=== PATIENT | male | born 1975 | race Caucasian/White ===

== ENCOUNTER 2024-04-21 10:28 | Outpatient (AMB) | payer OTHER, SELFPAY ==
--- NOTE | 2024-04-21 10:51 | A.OFFPC_ITS ---
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 agustina from [facility] Intake Note: New patient visit Director Of Solutions Architecture Required: No Allergies No Known Allergies Allergy (Verified 04/21/24 10:52) Tobacco use date assessed: 04/21/24 Dental Screening Dental Screen Date: 04/21/24 Did you have a dental visit in the last 12 months?: Yes Did you have a dental problem in the last 6 months where you did not have access to dental care?: No Was dental information given to patient?: Patient has dentist HPI HPI Comments History of Present Illness Details The patient is a 49 year old male with a past medical history of htn, depression, anxiety, ED, low testosterone presenting for follow up CV: On lisinopril 10mg daily. well controlled. denies chest pain, shortness of breath. Frustrated by weight gain. Would like to try GLP if covered. Has failed lifestlye changes. BH: On sertraline 50mg daily. stable. Tried wellbutrin in past but didnt like side effects. Endo/uro: on tadafanil 5mg daily, continues testosterone replacement therapy. Due for labs Colon cancer screening: ROS CONSTITUTIONAL: Denies weight loss, fever and chills. HEENT: Denies changes in vision and hearing. RESPIRATORY: Denies SOB and cough. CV: Denies palpitations and CP GI: Denies abdominal pain, nausea, vomiting and diarrhea. : Denies dysuria and urinary frequency. MSK: Denies new myalgia and joint pain. SKIN: Denies rash and pruritus. NEUROLOGICAL: Denies headache PSYCHIATRIC: Denies recent changes in mood. PHYSICAL EXAM: GENERAL: Alert and oriented x 3. NAD EYES: EOMI. Anicteric. HENT: Moist mucous membranes. No scleral icterus. No cervical lymphadenopathy. LUNGS: Clear to auscultation bilaterally. CARDIOVASCULAR: Regular rate and rhythm. No murmur. No JVD. ABDOMEN: Soft, non-tender +bs EXTREMITIES: No edema. Non-tender. SKIN: No rashes or lesions. Warm. NEUROLOGIC: No focal neurological deficits. CN II-XII grossly intact PSYCHIATRIC: Cooperative. Appropriate mood and affect [facility] Medical History (Updated 04/27/24 @ 10:03 by Suellen Porter MD) Kidney stone Family History (Updated 04/21/24 @ 11:00 by Cristin Hearn CMA) Mother Diabetes Heart disease Dementia Father HTN (hypertension) FH: kidney cancer Skin cancer Dementia Other FH: mental illness Social History (Updated 04/21/24 @ 10:52 by Cristin Hearn CMA) Housing: House Patient Tobacco Use Status: Former Tobacco user Cigarette Packs Per Day: 1 Years Smoked: 30 e-Cigarette/Vaping Use: Never Used Second Hand Smoke Exposure: No service: No Current occupational status: employed 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 1. Little interest or pleasure in doing things: not at all 2. Feeling down, depressed, or hopeless: not at all 3. Trouble falling or staying asleep, or sleeping too much: several days 4. Feeling tired or having little energy: not at all 5. Poor appetite or overeating: several days 6. Feeling bad about yourself - or that you are a failure or have let yourself or your family down: not at all 7. Trouble concentrating on things, such as reading the newspaper or watching t elevision: not at all 8. Moving or speaking so slowly that other people could have noticed. Or the opposite - being so fidgety or restless that you have been moving around a lot more than usual: not at all 9. Thoughts that you would be better off or of hurting yourself in some way: not at all Total score: 2 Depression Screening Interpretation: Negative (neg) Depression Screening Done: Yes 17312 - PHQ-9 Billing: Yes Source: Developed by Drs. Lul Graves, Yary Andrews, Thom Arevalo and colleagues, with an educational jayson from [employer]. Thrive Questionnaire Date Thrive assessed: 04/21/24 I am a: Patient What is your living situation today?: I have a steady place to live Within the past 12 months, did the food you bought not last and you didn't have the money to get more?: Never true Within the past 12 months, did you worry whether your food would run out before you got money to buy more?: Never true Do you have trouble paying for medicines?: No Do you have trouble getting transportation to medical appointments?: No Do you have trouble paying your heating and electricity bill?: No Do you have trouble taking care of your child, family member or friend?: No Do you have trouble with day-to-day activities such as bathing, preparing meals, shopping, managing finances, etc.?: No Are you currently unemployed and looking for a job?: No Are you interested in more education?: No Please select the resources that you would like help with: None Currently or been in a relationship where the following occur: No concerns reported THRIVE Score: 0 AUDIT C Alcohol Use Questionnaire (AUDIT-C) 1. How often do you have a drink containing alcohol?: Monthly or less 2. How many drinks containing alcohol do you have on a typical day when you are drinking?: 1 or 2 3. How often do you have six or more drinks on one occasion?: Never Total Score: 1 RAFAELA-7 AMB Questionnaire RAFAELA-7 Date RAFAELA - 7 assessed: 04/21/24 Feeling nervous, anxious, or on edge: 0 = Not at all Not being able to stop or control worryin = Not at all Worrying too much about different things: 1 = Several days Trouble relaxin = Several days Being so restless that it is hard to sit still: 1 = Several days Becoming easily annoyed or irritable: 1 = Several days Feeling afraid as if something awful might happen: 0 = Not at all Total RAFAELA-7 score (0-4 normal; 5-9 mild; 10-14 moderate; 15-21 severe): 4 Source: Developed by Drs. Lul Graves, Yary Andrews, Thom Arevalo and colleagues, with an educational jayson from [employer]. RAFAELA-7 Assessment Billing RAFAELA-7 Assessment Tool: RAFAELA-7 Assessment 16822 Physical exam (Primary Care) Vital Signs: Last Vital Signs Temp 98.2 F 04/21/24 11:02 Pulse 64 04/21/24 11:02 Resp 16 04/21/24 11:02 BP 126/86 04/21/24 11:02 Pulse Ox 96 04/21/24 11:02 Oxygen Delivery Method Room Air 04/21/24 11:02 BMI result Body Mass Index 33.2 Tobacco/Smoking Status: Tobacco use Status Tobacco use date assessed 04/21/24 04/21/24 11:05 Patient Tobacco Use Status Former Tobacco user 04/21/24 11:05 e-Cigarette/Vaping Use Never Used 04/21/24 11:05 PHQ-9: PHQ-9 Score PHQ-9: Total score 2 04/21/24 11:10 Depression Screening Interpretation: Negative (neg) Thrive Assessment: Date of Thrive Assessment Date Thrive assessed 04/21/24 04/21/24 11:05 Currently or been in a relationship where the following occur: No concerns reported Assessment and Plan Assessment & Plan (1) Hypertension: Code(s): I10 - Essential (primary) hypertension Qualifiers: Hypertension type: primary hypertension Qualified Code(s): I10 - Essential (primary) hypertension Plan: controlled on current medications Low salt diet Recommend weight loss -GLP sent. (2) Low testosterone: Code(s): R79.89 - Other specified abnormal findings of blood chemistry Plan: Labs ordered. continue current medications (3) Major depressive disorder, recurrent, in partial remission: Code(s): F33.41 - Major depressive disorder, recurrent, in partial remission Plan: stable on current medications Orders: Orders Lipid Panel 04/21/24 I10 - Essential (primary) hypertension, R79.89 - Other specified abnormal findings of blood chemistry, Z51.81 - Encounter for therapeutic drug level monitoring, Z79.890 - Hormone replacement therapy Comprehensive Met. Panel 04/21/24 I10 - Essential (primary) hypertension, R79.89 - Other specified abnormal findings of blood chemistry, Z51.81 - Encounter for therapeutic drug level monitoring, Z79.890 - Hormone replacement therapy Complete Blood Count Auto Diff 04/21/24 I10 - Essential (primary) hypertension, R79.89 - Other specified abnormal findings of blood chemistry, Z51.81 - Encounter for therapeutic drug level monitoring, Z79.890 - Hormone replacement therapy PSA,Total (Free>4and<10) 04/21/24 I10 - Essential (primary) hypertension, R79.89 - Other specified abnormal findings of blood chemistry, Z51.81 - Encounter for therapeutic drug level monitoring, Z79.890 - Hormone replacement therapy TSH reflex Free T4 04/21/24 I10 - Essential (primary) hypertension, R79.89 - Other specified abnormal findings of blood chemistry, Z51.81 - Encounter for therapeutic drug level monitoring, Z79.890 - Hormone replacement therapy Medications: New testosterone 8 pumps transdermal DAILY 300 grams 3RF semaglutide for 4 weeks 0.25 mg (0.368 mL) subcut QWEEK 4 weeks 1.472 mL 3RF lisinopril 10 mg PO DAILY 90 tabs 3RF sertraline 50 mg PO DAILY 90 days 90 tabs 3RF testosterone apply 1 pump amount over max area of ONE upper arm and shoulder 5 pumps topical DAILY 90 days 150 grams 3RF Refilled tadalafil (Cialis) one tablet oral daily and additional 10mg as needed one hour prior to sexual activity 5 mg PO DAILY 110 tabs 3RF Coding Level of Care Code Est Pt Level 4 (69953) Complex EM visit Add On G2211 Diagnoses Primary hypertension I10 Hypertension type: primary hypertension Low testosterone R79.89 Major depressive disorder, recurrent, in partial remission F33.41 Additional Codes RAFAELA-7 Assessment Billing - RAFAELA-7 Assessment Tool: RAFAELA-7 Assessment 66042 ([id number])
[2024-04-21 11:02] VITALS: BP 126/86; PULSE 64; RESP 16; TEMP 36.8; O2SAT 96; BMI 33.2
== END 2024-04-21 11:33 | disposition home or self-care (01) ==
PROVIDERS: Visit Provider Internal Medicine
DX: I10 Essential (primary) hypertension (principal); R79.89 Other specified abnormal findings of blood chemistry; F33.41 Major depressive disorder, recurrent, in partial remission
CPT/HCPCS: 99214

== ENCOUNTER 2024-04-21 11:47 | Outpatient (REF) | payer OTHER, SELFPAY ==
[2024-04-21 14:27] LABS: MANUAL DIFF FLAG NO
[2024-04-21 14:41] LABS: Basophils Percent Auto 0.4 % (0-2); Eosinophils Absolute Auto 0.1 X10*3/uL (0.0-0.4); Eosinophils Percent Auto 1.9 % (0-4); Hematocrit 46.4 % (42.0-52.0); Imm Gran Abs Auto 0.02 X10*3/uL (0.00-0.03); Imm Gran Pct Auto 0.3 % (0.0-0.4); Lymphocytes Absolute Auto 1.5 X10*3/uL (1.2-4.9); Mean Corpuscular HGB Conc 34.5 g/dl (31.0-36.0); Mean Corpuscular Hemoglobin 29.2 pg (27.0-33.0); Mean Corpuscular Volume 84.7 fL (80.0-98.0); Mean Platelet Volume 10.6 fL (9.4-12.4); Monocytes Absolute Auto 0.4 X10*3/uL (0.1-1.2); Monocytes Percent Auto 5.8 % (2-11); Neutrophils Absolute Auto 4.6 x10*3/uL (2.0-8.3); Neutrophils Percent Auto 69.6 % (45-73); Platelet Count 174 X10*3/uL (160-400); Red Blood Count 5.48 X10*6/uL (4.60-5.80); White Blood Count 6.7 X10*3/uL (4.8-10.8)
[2024-04-21 15:05] LABS: Alanine Aminotransferase 18 U/L (0-40); Albumin Level 4.5 g/dL (3.5-5.0); Alkaline Phosphatase 60 U/L (39-117); Anion Gap 12 (12-20); Aspartate Amino Transferase 26 U/L (5-37); Bilirubin Total 0.8 mg/dL (0.0-1.0); Blood Urea Nitrogen 16 mg/dL (9-16); Calcium 9.8 mg/dL (8.4-10.2); Carbon Dioxide 28 mmol/L (22-29); Chloride 105 mmol/L (96-108); Cholesterol 166 mg/dL (<200); Estimated Glomerular Filt Rate > 60; Glucose Random 86 mg/dL (60-115); HDL Cholesterol 37 mg/dL (>40); LDL Cholesterol Calculated 94 mg/dL (<100); Potassium 4.2 mmol/L (3.3-5.1); Sodium 141 mmol/L (135-145); Total Protein 7.1 g/dL (6.5-8.0); Triglycerides 177 mg/dL (<150)
[2024-04-21 15:10] LABS: TSH reflex Free T4 0.99 uIU/mL (0.32-4.0)
== END 2024-04-21 11:48 | disposition home or self-care (01) ==
LOC: HO.WFDLDS 11:47
PROVIDERS: Visit Provider Internal Medicine
DX: R79.89 Other specified abnormal findings of blood chemistry (principal); I10 Essential (primary) hypertension; Z51.81 Encounter for therapeutic drug level monitoring; Z79.890 Hormone replacement therapy; Z12.5 Encounter for screening for malignant neoplasm of prostate
CPT/HCPCS: 36415; 80053; 80061; 84153; 84443; 85025

== ENCOUNTER 2024-11-04 08:20 | Outpatient (AMB) | payer OTHER, SELFPAY ==
--- NOTE | 2024-11-04 08:25 | A.OFFPC_ITS ---
Vital Signs 11/04/24 08:34 Height 5 ft 11.26 in Weight 235 lb 8 oz BMI 32.6 BP 136/84 Blood Pressure Location Rt brachial Position Sitting Respiration 14 Pulse 74 Pulse Source Pulse Oximeter Pulse Oximetry (%) 97 Oxygen Delivery Method Room Air Intake Visit Reasons: PE - see comments Intake Note: Physical Devops Solutions Architect Required: No Allergies No Known Allergies Allergy (Verified 11/04/24 08:26) Medication List - Last Reconciled 11/04/24 by Suellen Porter MD buprenorphine-naloxone 8-2 mg film sublingual lisinopril 10 mg PO DAILY [semaglutide 1.375 .] sertraline 50 mg PO DAILY 90 days tadalafil (Cialis) 5 mg PO DAILY testosterone Apply 5 pumps daily or as directed OM upper arm or shoulder 1.65 MG Tobacco use date assessed: 11/04/24 Dental Screening Dental Screen Date: 04/21/24 HPI HPI Comments History of Present Illness Details The patient is a 49 year old male with a past medical history of htn, depression, anxiety, ED, low testosterone presenting for follow up CV: On lisinopril 10mg daily. well controlled. denies chest pain, shortness of breath. On compound ozempic through [facility]. Has lost ten pounds. Insurance wont cover any GLP BH: On sertraline 50mg daily. stable. Tried wellbutrin in past but didnt like side effects. Endo/uro: on tadafanil 5mg daily, continues testosterone replacement therapy. Due for labs Colon cancer screening: cologuaraciel 10/2024 ROS CONSTITUTIONAL: Denies weight loss, fever and chills. HEENT: Denies changes in vision and hearing. RESPIRATORY: Denies SOB and cough. CV: Denies palpitations and CP GI: Denies abdominal pain, nausea, vomiting and diarrhea. : Denies dysuria and urinary frequency. MSK: Denies new myalgia and joint pain. SKIN: Denies rash and pruritus. NEUROLOGICAL: Denies headache PSYCHIATRIC: Denies recent changes in mood. PHYSICAL EXAM: GENERAL: Alert and oriented x 3. NAD EYES: EOMI. Anicteric. HENT: Moist mucous membranes. No scleral icterus. No cervical lymphadenopathy. LUNGS: Clear to auscultation bilaterally. CARDIOVASCULAR: Regular rate and rhythm. No murmur. No JVD. ABDOMEN: Soft, non-tender +bs EXTREMITIES: No edema. Non-tender. SKIN: No rashes or lesions. Warm. NEUROLOGIC: No focal neurological deficits. CN II-XII grossly intact PSYCHIATRIC: Cooperative. 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 1. Little interest or pleasure in doing things: several days 2. Feeling down, depressed, or hopeless: not at all 3. Trouble falling or staying asleep, or sleeping too much: not at all 4. Feeling tired or having little energy: several days 5. Poor appetite or overeating: not at all 6. Feeling bad about yourself - or that you are a failure or have let yourself or your family down: not at all 7. Trouble concentrating on things, such as reading the newspaper or watching television: several days 8. Moving or speaking so slowly that other people could have noticed. Or the opposite - being so fidgety or restless that you have been moving around a lot more than usual: not at all 9. Thoughts that you would be better off or of hurting yourself in some w ay: not at all Total score: 3 Depression Screening Interpretation: Negative Depression Screening Done: Yes 28261 - PHQ-9 Billing: Yes Source: Developed by Drs. Lul Graves, Yary Andrews, Thom Arevalo and colleagues, with an educational jayson from [employer]. Thrive Questionnaire Date Thrive assessed: 10/29/24 I am a: Patient What is your living situation today?: I have a steady place to live Within the past 12 months, did the food you bought not last and you didn't have the money to get more?: Never true Within the past 12 months, did you worry whether your food would run out before you got money to buy more?: Never true Do you have trouble paying for medicines?: No Do you have trouble getting transportation to medical appointments?: No Do you have trouble paying your heating and electricity bill?: No Do you have trouble taking care of your child, family member or friend?: Yes Do you have trouble with day-to-day activities such as bathing, preparing meals, shopping, managing finances, etc.?: No Are you currently unemployed and looking for a job?: No Are you interested in more education?: No Please select the resources that you would like help with: None Currently or been in a relationship where the following occur: No concerns reported THRIVE Score: 0 AUDIT C Alcohol Use Questionnaire (AUDIT-C) 1. How often do you have a drink containing alcohol?: Monthly or less 2. How many drinks containing alcohol do you have on a typical day when you are drinking?: 1 or 2 3. How often do you have six or more drinks on one occasion?: Never Total Score: 1 RAFAELA-7 AMB Questionnaire RAFAELA-7 Date RAFAELA - 7 assessed: 11/04/24 Feeling nervous, anxious, or on edge: 0 = Not at all Not being able to stop or control worryin = Several days Worrying too much about different things: 1 = Several days Trouble relaxin = Several days Being so restless that it is hard to sit still: 0 = Not at all Becoming easily annoyed or irritable: 0 = Not at all Feeling afraid as if something awful might happen: 0 = Not at all Total RAFAELA-7 score (0-4 normal; 5-9 mild; 10-14 moderate; 15-21 severe): 3 Source: Developed by Drs. Lul Graves, Yary Andrews, Thom Arevalo and colleagues, with an educational jayson from [employer]. RAFAELA-7 Assessment Billing RAFAELA-7 Assessment Tool: RAFAELA-7 Assessment 74577 Physical exam (Primary Care) Vital Signs: Last Vital Signs Pulse 74 11/04/24 08:34 Resp 14 11/04/24 08:34 BP 136/84 11/04/24 08:34 Pulse Ox 97 11/04/24 08:34 Oxygen Delivery Method Room Air 11/04/24 08:34 BMI result Body Mass Index 32.6 Tobacco/Smoking Status: Tobacco use Status Tobacco use date assessed 11/04/24 11/04/24 08:38 Patient Tobacco Use Status Current everyday Tobacco 11/04/24 08:38 e-Cigarette/Vaping Use Never Used 11/04/24 08:38 PHQ-9: PHQ-9 Score PHQ-9: Total score 3 11/04/24 09:03 Depression Screening Interpretation: Negative Thrive Assessment: Date of Thrive Assessment Date Thrive assessed 10/29/24 11/04/24 08:38 Currently or been in a relationship where the following occur: No concerns reported Coding Level of Care Code Est Pt Prev Care 40-64y(94197) Diagnoses Physical exam Z00.00 Major depressive disorder, recurrent, in partial remission F33.41 Primary hypertension I10 Hypertension type: primary hypertension Low testosterone R79.89 Additional Codes RAFAELA-7 Assessment Billing - RAFAELA-7 Assessment Tool: RAFAELA-7 Assessment 41711 ([id number]) PHQ-9 - 14153 - PHQ-9 Billing: Yes ([id number]) Assessment & Plan Assessment & Plan (1) Physical exam: Code(s): Z00.00 - Encounter for general adult medical examination without abnormal findings Category: Medical (2) Major depressive disorder, recurrent, in partial remission: Code(s): F33.41 - Major depressive disorder, recurrent, in partial remission Category: Medical (3) Hypertension: Code(s): I10 - Essential (primary) hypertension Category: Medical Qualifiers: Hypertension type: primary hypertension Qualified Code(s): I10 - Essential (primary) hypertension (4) Low testosterone: Code(s): R79.89 - Other specified abnormal findings of blood chemistry Category: Medical Plan 49 y/o for physical Interval history reviewed Chronic medicals conditions reviewed Meds reconciled Labs ordered Orders: Orders Testosterone, Free/Total Today F33.41 - Major depressive disorder, recurrent, in partial remission, I10 - Essential (primary) hypertension, R79.89 - Other specified abnormal findings of blood chemistry Complete Blood Count Auto Diff Today Z13.0 - Encounter for screening for diseases of the blood and blood-forming organs and certain disorders involving the immune mechanism Comprehensive Met. Panel Today F33.41 - Major depressive disorder, recurrent, in partial remission, I10 - Essential (primary) hypertension, R79.89 - Other specified abnormal findings of blood chemistry Lipid Panel Today F33.41 - Major depressive disorder, recurrent, in partial remission, I10 - Essential (primary) hypertension, R79.89 - Other specified abnormal findings of blood chemistry
[2024-11-04 08:34] VITALS: BP 136/84; PULSE 74; RESP 14; O2SAT 97; BMI 32.6
--- OUTSIDE RECORDS SUMMARY | 2024-11-04 08:47 | XMS_ITS | Encounter Summary ---
Author Organization [employer] Address [address] [place] [address] Care Team Providers Care Couture Dressmaker Name Role Phone Suellen Porter MD Primary Care Provider [phone] Reason for Visit * Reason Comments Substance Use Encounter Details Date Type Department Care Team (Late st Contact Info) Description 10/09/2024 9:15 AM EST Office Visit [facility] [address] [place] [address] Elias Shi MD [address], [place] Drug dependence, in remission (CMS/HCC) (Primary Dx) Social History Tobacco Use Types Packs/Day Years Used Date Smoking Tobacco: Never Assessed Sex and Gender Information Value Date Recorded Sex Assigned at Not on file Legal Sex Male 5:27 PM EST Gender Identity Not on file Sexual Orientation Not on file documented as of this encounter Last Filed Vital Signs Vital Sign Reading Time Taken Comments Blood Pressure 130/82 10/09/2024 9:24 AM EST Pulse 70 10/09/2024 9:24 AM EST Temperature 36.5 ??C (97.7 ??F) 10/09/2024 9:24 AM ES T Respiratory Rate - - Oxygen Saturation 96% 10/09/2024 9:24 AM EST Inhaled Oxygen Concentration - - Weight - - Height - - Body Mass Index - - documented in this encounter Ordered Prescriptions Prescription Sig Dispense Quantity Refills Last Filled Start Date End Date buprenorphine-nalox one (SUBOXONE) 8-2 mg per SL filmIndications:Randal g dependence, in remission (CMS/HCC) Place 0.75 films under the tongue 3 (three) times a day. Max Daily Amount: 2.25 films 63 film 10/09/2024 documented in this encounter Progress Notes * Elias Shi MD - 10/09/2024 9:15 AM EST CHIEF COMPLAINT: Chief Complaint Patient presents with Substance Use IDENTIFIER: Azael Mckeon is a 49 y.o. old male. HPI: The patient presents today for followup of buprenorphine treatment. has not experienced relapses. has not experienced cravings. Cravings manageable? yes is not seeing behavioral health. does feel comfortable at present dosing of buprenorphine. Patient is in remission Patient feels good overall ROS: GENERAL: No malaise, significant weight loss or fever RESPIRATORY: No cough, wheezing or shortness of breath CARDIOVASCULAR: No chest pain, leg swelling or palpitations GI: see HPI ENDOCRINE: No cold or heat intolerance, polyuria, polydipsia or goiter. NEURO: No persistent headache, syncope, seizures, weakness or numbness PAST MEDICAL HISTORY: Patient Active Problem List Diagnosis Date Noted Drug dependence, in remission ([facility]) 04/19/2021 ED (erectile dysfunction) 03/30/2021 HTN (hypertension) 03/30/2021 Hypogonadism in male 03/30/2021 Nephrolithiasis 03/30/2021 RONNY (obstructive sleep apnea) 03/30/2021 Sensorineural hearing loss 03/30/2021 Tinnitus 03/30/2021 Substance use disorder 03/01/2021 No past surgical history on file. SOCIAL HISTORY: Social History Tobacco Use Smoking status: Not on file Smokeless tobacco: Not on file Substance Use Topics Alcohol use: Not on file FAMILY HISTORY: Family History Problem Relation Name Age of Onset Arthritis Mother Hypertension Father Family Status Relation Name Status Mother (Not Specified) Father (Not Specified) No partnership data on file MEDICATIONS DISCONTINUED/REORDERED: Medications Discontinued During This Encounter Medication Reason buprenorphine-naloxone (SUBOXONE) 8-2 mg per SL film Reorder ACTIVE MEDICATIONS: Outpatient Medications Marked as Taking for the 10/09/24 encounter (Office Visit) with Elias Shi MD Medication Sig Dispense Refill buprenorphine-naloxone (SUBOXONE) 8-[address] 0.75 films under the tongue 3 (three) times a day. Max Daily Amount: 2.25 films 63 film 0 ALLERGIES: No Known Allergies PHYSICAL EXAM: Vitals: 10/09/24 0924 BP: 130/82 Pulse: 70 Temp: 36.5 ??C (97.7 ??F) SpO2: 96% APPEARANCE: Alert and in no acute distress HEENT pupils equal and reactive, oral mucosa nl HEART: RRR with normal S1 and S2, no murmurs, no gallops, no JVD appreciated LUNG: Clear to auscultation Abd no masses or tenderness EXTREMITIES: Extremities warm and well perfused without clubbing, cyanosis, or edema NEURO: Awake, alert and oriented x 3 with symmetrical reflexes LABS/IMAGING: Urine tox screen reviewed Urine : Not indicated, male patient IMPRESSION: 1. Drug dependence, in remission ([facility]) PLAN: 1. Continue buprenorphine treatment, prescription sent for buprenorphine. Follow up arranged. Risk of relapse: mild Patient at goal ? No -continues to have cravings if misses a dose of buprenorphine. Continues to experience temptation to relapse/cravings if exposed to triggers. [facility] [employer] prescription monitoring system reviewed. Medication has been reviewed and managed. Prescription generated. Advised the patient to call me if any problems. Patient understands the plan. Patient is in agreement with the plan. Elias Shi MD on 10/09/2024 at 9:41 AM EST Today's documentation was made using voice recognition software. This note may contain grammatical errors secondary to this software. documented in this encounter Plan of Treatment Upcoming Encounters Date Type Department Care Team (Late st Contact Info) Description 11/06/2024 9:00 AM EDT Office Visit [facility] - [facility] [place] [address] Elias Shi MD [address] [place] [id number] documented as of this encounter Procedures Procedure Name Priority Date/Time Associated Diagnosis Comments POC URINE DRUG SCREEN Routine 10/09/2024 9:50 AM EST Drug dependence, in remission ([facility]) documented in this encounter Results * (ABNORMAL) POC Urine Drug Screen (10/09/2024 9:50 AM EST) Amphetamine Screen, Ur POC Negative Negative Barbituates, Ur POC Negative Negative Benzodiazepines, Ur POC Negative Negative Buprenorphine, Ur POC Positive(A) Negative Cocaine, Ur POC Negative Negative MDMA Ur POC Negative Negative Methamphetamine Screen, Ur POC Negative Negative Morphine Ur POC Negative Negative Opiate Scrn, Ur POC Negative Negative Oxycodone Scrn, Ur POC Negative Negative PCP, Ur POC Negative Negative THC, Ur POC Negative Negative Temperature, Ur POC 96 Urine Urine specimen obtained by clean catch procedure / Unknown 10/09/2024 9:50 AM EST Elias Shi MD POINT OF CARE TEST ENTER/EDIT OR DERABLES Final Result documented in this encounter Visit Diagnoses Diagnosis Drug dependence, in remission (CMS/HCC)- Primary Unspecified drug dependence, in remission documented in this encounter Discontinued Medications Medication Sig Discontinue Reason Start Date End Da te buprenorphine-naloxone (SUBOXONE) 8-2 mg per SL filmIndications:Drug dependence, in remission (CMS/HCC) Place 0.75 films under the tongue 3 (three) times a day. Max Daily Amount: 2.25 films Reorder 09/09/2024 10/09/2024 documented as of this encounter Care Teams Couture Dressmaker Relationship Specialty Start Date End Date Suellen Porter MD [address] [place] [address] PCP - General 12/03/23 documented as of this encounter
--- OUTSIDE RECORDS SUMMARY | 2024-11-04 08:47 | XMS_ITS ---
Author Organization [facility] Address [address] [address] Care Team Providers Care Poultry Hatchery Supervisor Name Role Phone MeaganSuellen Louise Primary Care Provider KARLEY Alicea Unavailable [phone] Allergies No Known Allergies REASON FOR VISIT Lt ankle/ side of the foot pain Medications Medication SIG (Take, Route, Frequency, Duration) Notes Start Date End Date Status Buprenorphine HCl 75 MCG 1 film to the g um Bucally Once a day Active Meloxicam 15 MG 1 tablet with food Orally Once a day for 30 day(s) Not-Taking Meloxicam 15 MG 1 tablet Orally Once a day with food. for 30 day(s) Not-Taking Testosterone 20.25 MG/ACT (1.62%) 1 pump to skin in the morning to shoulder, upper arms or abdomen Transdermal Once a day Active Sertraline HCl 50 MG 1 tablet Orally Onc e a day Active Sildenafil Citrate A ctive Lisinopril 10 MG 1 tablet Orally Once a day Active Vital Signs Temperature 97.5 degrees Fahrenheit 06/14/20 23 Heart Rate 76 /min 06/14/2023 Respiratory Rate 16 /min 06/14/2023 Height 6ft 1in in 06/14/2023 Weight 239.7 lbs 06/14/2023 BMI 31.62 kg/m2 06/14/2023 Procedures Procedure Date Ordered Date Performed Result Body Sit e AFO ANK GAUNTLT PREFAB W/FIT&ADJ 06/14/2023 N/A Encounters Encounter Location Date Provider Diagnosis [facility] [address] [address] 06/14/2023 KARLEY MARRERO Sinus tarsi syndrome, 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 Four weightbearing left foot and ankle radiographs taken in the office today and reviewed with patient. No acute changes since his last radiographs. He presents with a 1 month history of left lateral foot/ankle pain. This seems localized around the sinus tarsi. He does have a flexible pes planovalgus deformity. I discussed how this deformity can create impingement at the sinus tarsi causing inflammation of the soft tissue. I discussed conservative options of NSAIDs, RICE, steroid injections, bracing, and orthotics. He wished to restart the meloxicam 15mg he has at home with food. I fitted him into an ASO brace to stabilize the STJ and ankle joint. I advise he where this when exercising or long walks. I advised icing and avoiding running and jumping for 2 weeks. If the pain persists or worsens, I advise he follow back up in the office. 06/14/2023 Acquired pes planovalgus, left (ICD-10 - M21.42) Plan Of Treatment Treatment Notes Assessment Notes Sinus tarsi syndrome, left Patient exami angie and evaluated. Four weightbearing left foot and ankle radiographs taken in the office today and reviewed with patient. No acute changes since his last radiographs. He presents with a 1 month history of left lateral foot/ankle pain. This seems localized around the sinus tarsi. He does have a flexible pes planovalgus deformity. I discussed how this deformity can create impingement at the sinus tarsi causing inflammation of the soft tissue. I discussed conservative options of NSAIDs, RICE, steroid injections, bracing, and orthotics. He wished to restart the meloxicam 15mg he has at home with food. I fitted him into an ASO brace to stabilize the STJ and ankle joint. I advise he where this when exercising or long walks. I advised icing and avoiding running and jumping for 2 weeks. If the pain persists or worsens, I advise he follow back up in the office. Pending Test Test Name Order Date X ray : Foot, left 3v 06/14/2023 AFO EDIN CHOPRA PREFAB W/FIT&ADJ 023 Progress Notes * Azael LIGHT:[birth year] (48 yo M)Acc No.[id number]:06/14/2023 Progress Notes Patient:Azael WESLEY Provider:?Karley Abrams DPM :1975???Age:48 Y???Sex:Male Sony e:06/14/2023 Address:[address] [place], [place] [id number] Pcp:Suellen Porter Subjective: * Chief Complaints: * ???Lt ankle/ side of the noemi t pain * HPI: ???Constitutional:? Mr. Light presents for a new problem visit. He has been having pain to the side of his left ankle for the past month. He has not had any injuries or changes in his activity. He states the pain can radiate to the top of the foot. He notices it when he first gets up, when he is working out, and when he is barefoot. He has not noticed any swelling or discoloration. He also denies any numbness, tingling or burning. He has not tried anything for the pain since it has started. * ROS:?General/Constitutional:?Denies?Chills.?Denies?Fatigue.?Denies?Fever.?Denies?Headache.?Respiratory:?Denies?Cough.?Denies?Shortness of breath,?denies.?Denies?Wheezing.?Musculoskeletal:?Patient complaining of?left ankle pain.?Denies?Joint stiffness.?Denies?Leg cramps.?Neurologic:?Denies?Paralysis.?Denies?Tingling/Numbness.?Denies?Tremor.? * Medical History:? * Surgical History:?Varicose V ein Removal Kidney Stone Removal * Hospitalization/Major Diagno stic Procedure:?Varicose Vein Surgery Kidney Stone Surgery * Family History:?Father: hype rtension.?Mother: arthritis.? * Social History:?Tobacco Use: Yes Alcohol Use: Occasionally. * Medications:?TakingLisinopri l 10 MG Tablet 1 tablet Orally Once a day Sildenafil Citrate Sertraline HCl 50 MG Tablet 1 tablet Orally Once a day Testosterone 20.25 MG/ACT (1.62%) Gel 1 pump to skin in the morning to shoulder, upper arms or abdomen Transdermal Once a day Buprenorphine HCl 75 MCG Film 1 film to the gum Bucally Once a day Taking Lisinopril 10 MG Tablet 1 tablet Orally Once a day Taking Sildenafil Citrate Taking Sertraline HCl 50 MG Tablet 1 tablet Orally Once a day Taking Testosterone 20.25 MG/ACT (1.62%) Gel 1 pump to skin in the morning to shoulder, upper arms or abdomen Transdermal Once a day Taking Buprenorphine HCl 75 MCG Film 1 film to the gum Bucally Once a day Not-TakingMeloxicam 15 MG Tablet 1 tablet Orally Once a day with food. Meloxicam 15 MG Tablet 1 tablet with food Orally Once a day Medication List reviewed and reconciled with the patientNot-Taking Meloxicam 15 MG Tablet 1 tablet Orally Once a day with food. Not-Taking Meloxicam 15 MG Tablet 1 tablet with food Orally Once a day Medication List reviewed and reconciled with the patient * Allergies:?N.K.D.A.no[Allerg ies Verified] Objective: * Vitals:?Wt:239.7lbs, Ht: 6ft 1in, BMI:31.62Index, HR:76/min, Temp:97.5F, RR:16/min, Ht-cm: 185.42, Wt-k.73 kg. * Examination: ???General Examination: ???This is a middle aged male. Alert and oriented today and in no acute distress. Patient comes in ambulating in sneakers without using any assistive devices. Breathing is regular and unlabored while sitting. Affect is pleasant and cooperative. No unusual anxiety or depression noted. Hearing intact to spoken word. No evidence of visual impairment that would impact self care or ambulation. Patient has palpable dorsalis pedis and posterior tibial pulse bilaterally. Many varicosities visualized to the lower leg bilaterally. Capillary refill is less than 3 seconds to all digits bilaterally. Light touch sensation is symmetrical to all lower extremity dermatomes. Babinski is downgoing. Skin has normal turgor and texture. There are no open wounds, rashes, or lesions noted. There is pain with pressure into the left sinus tarsi. Mild tenderness over the dorsal aspect of the left 4th and 5th TMTJ area and cuboid. Pain with forced eversion of the subtalar joint. No subtalar joint restriction. No pain with left ankle joint range of motion. No discoloration or edema present. He does have a left pes planovalgus deformity with equinus. 5/5 strength for anterior, posterior, and lateral lower extremity muscle groups on the left and right. Assessment: * Assessment: 1.?Sinus tarsi syndrome, lef t - M25.572 (Primary)?2.?Acquired pes planovalgus, left - M21.42? Plan: * Treatment: ?Procedure: KANG CHOPRA PREFAB W/FIT&ADJ Notes: Patient examined and evaluated. Four weightbearing left foot and ankle radiographs taken in the office today and reviewed with patient. No acute changes since his last radiographs. He presentswith a 1 month history of left lateral foot/ankle pain. This seems localized around the sinus tarsi. He does have a flexible pes planovalgus deformity. I discussed how this deformity can create impingement at the sinus tarsi causing inflammation of the soft tissue. I discussed conservative options of NSAIDs, RICE, steroid injections, bracing, and orthotics. He wished to restart the meloxicam 15mghe has at home with food. I fitted him into an ASO brace to stabilize the STJ and ankle joint. I advise he where this when exercising or long walks. I advised icing and avoiding running and jumping for 2 weeks. If the pain persists or worsens, I advise he follow back up in the office. ??2.?Acquired pes planovalgus, left?Imaging: X ray : Foot, left 3v* * Procedures:?LEFT FOOT RADIOGRAPHS 06/14/2023 compared to 11/16/2021 4 weight bearing views (AP, LAT, LO PROJECTION/MO VIEW, AP ANKLE) Taken in the office and read by the physician. Osseous mineralization is age appropriate. There are no acute fractures or dislocations. No abnormal bone lesions or tumors. Joint spaces appear preserved throughout. No radio opaque foreign bodies or soft tissue calcifications. Small os trigonum present. Decrease in the calcaneal inclination angle and increase in Kites angle. ? * Procedure Codes:?77142 X-RAY EXAM OF FOOT 3 Views, Modifiers: LT L1902 AFO EDIN CHOPRA PREFAB W/FIT&ADJ, Modifiers: LT , KX * Billing Information: * Visit Code:? 67670 Office Visit, Est Pt., Level 3. * Procedure Codes:? 18256 X-RAY EXAM OF FOOT 3 Views. Modifiers: LT L1902 AFO EDIN GAUNTLT PREFAB W/FIT&ADJ. Modifiers: LT, KX * Sign off status: Completed true * Provider:Misael Abrams DPM Date:?06/14 Generated for Niru valdez/Ari/Sammiesmitting on:?11/04/2024 08:47 AM EDT History and Physical Notes * Examination Category Sub-Category Detail Notes Category Not es General Examination This is a middle aged male. Alert and oriented today and in no acute distress. Patient comes in ambulating in sneakers without using any assistive devices. Breathing is regular and unlabored while sitting. Affect is pleasant and cooperative. No unusual anxiety or depression noted. Hearing intact to spoken word. No evidence of visual impairment that would impact self care or ambulation. Patient has palpable dorsalis pedis and posterior tibial pulse bilaterally. Many varicosities visualized to the lower leg bilaterally. Capillary refill is less than 3 seconds to all digits bilaterally. Light touch sensation is symmetrical to all lower extremity dermatomes. Babinski is downgoing. Skin has normal turgor and texture. There are no open wounds, rashes, or lesions noted. There is pain with pressure into the left sinus tarsi. Mild tenderness over the dorsal aspect of the left 4th and 5th TMTJ area and cuboid. Pain with forced eversion of the subtalar joint. No subtalar joint restriction. No pain with left ankle joint range of motion. No discoloration or edema present. He does have a left pes planovalgus deformity with equinus. 5/5 strength for anterior, posterior, and lateral lower extremity muscle groups on the left and right.
--- OUTSIDE RECORDS SUMMARY | 2024-11-04 08:47 | XMS_ITS ---
Author Organization [facility] Address [address] [address] Care Team Providers Care Tester Equipment Name Role Phone MeaganSuellen Louise Primary Care Provider KARLEY Alicea Unavailable [phone] Allergies No Known Allergies REASON FOR VISIT left foot pain and ankle pain Medications Medication SIG (Take, Route, Frequency, Duration) Notes Start Date End Date Status Sertraline HCl 50 MG 1 tablet Orally Onc e a day Active Testosterone 20.25 MG/ACT (1.62%) 1 pump to skin in the morning to shoulder, upper arms or abdomen Transdermal Once a day Active Buprenorphine HCl 75 MCG 1 film to the g um Bucally Once a day Active Meloxicam 15 MG 1 tablet Orally Once a day with food. for 30 day(s) Not-Taking Meloxicam 15 MG 1 tablet with food Orally Once a day for 30 day(s) Not-Taking Lisinopril 10 MG 1 tablet Orally Once a day Active Sildenafil Citrate A ctive Meloxicam 15 MG 1 tablet with food Orally Once a day for 30 days 11/06/2023 Active Vital Signs Temperature 96.4 degrees Fahrenheit 11/06/19 24 Heart Rate 78 /min 11/06/2023 Respiratory Rate 16 /min 11/06/2023 Height 6ft 1in in 11/06/2023 Weight 241.5 lbs 11/06/2023 BMI 31.86 kg/m2 11/06/2023 Procedures Procedure Date Ordered Date Performed Result Body Sit e INJECT TENDON ORIGIN/INSERT 11/06/2023 N/A Encounters Encounter Location Date Provider Diagnosis [facility] [address] [phone] 11/06/2023 KARLEY MARRERO Sinus tarsi syndrome, 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 The ASO brace was minimally helpful. At this time I recommend him getting into custom orthotics to better stabilize his forefoot abduction and heel valgus. He was agreeable. I will set this up for him when he gets back from his trip. I did refill the mobic 15mg daily with food as needed for pain. All Risks of taking NSAIDS were reviewed again with the patient today. Risks included increase in blood pressure, heart attack, stroke, gastrointestinal irritation leading to ulceration and bleeding, renal injury, renal failure, and allergic reaction. Medical neccessity for custom orthotics: Patient is ambulatory and requires stabilization of the forefoot and rearfoot due to a flexible pes planovalgus deformity bilaterally with symptomatic left subfibular impingement. Patient will need the device for more than 6 months. Patient has the potential to benefit functionally and there is a need to control the forefoot and rearfoot in more than one plane. Treatment goals are to decrease strain on the deformed joints of the forefoot and rearfoot, to improve gait stability, and decrease pain and progression of deformity. This treatment is a viable alternative to reconstructive surgery. In this case prefabricated orthotics will not fit/secure to the patient due to their irregular contours and deformities. Custom orthotics must be fabricated to ensure proper fit and safety to the patient and to also reduce the risks of gapping, pressure spots, skin irritation, wounds, and injury. 11/06/2023 Peroneal tendonitis, left (ICD-10 - M76.72) Patient examined and evaluated. Past medical history reviewed. He presents with new pain at the base of the left 5th metatarsal that has been ongoing for a couple of months. This seems to be associated with the left peroneal brevis tendon insertion. We discussed that he may have an insertional tendonitis due to overuse. I discussed options of treatment with physical therapy, immobilization, shockwave therapy, steroid injections, and PRP. Patient wished to proceed with a steroid injection. This was given into the left peroneal brevis insertion using aseptic technique. He tolerated this well. He was given post-steroid injection instructions. I advised icing over the next few days. He will follow back in the office once he is back from his trip. I encouraged him to call in the meantime with any questions or concerns. 11/06/2023 Acquired pes planovalgus, left (ICD-10 - M21.42) Plan Of Treatment Medication Medication Name Sig Start Date Stop Date Notes Meloxicam 15 MG 1 tablet with food O rally Once a day for 30 days 11/06/2023 Treatment Notes Assessment Notes Sinus tarsi syndrome, left Patient continues to have pain in the left sinus tarsi due to subfibular impingement from his flexible pes planovalgus deformity. The ASO brace was minimally helpful. At this time I recommend him getting into custom orthotics to better stabilize his forefoot abduction and heel valgus. He was agreeable. I will set this up for him when he gets back from his trip. I did refill the mobic 15mg daily with food as needed for pain. All Risks of taking NSAIDS were reviewed again with the patient today. Risks included increase in blood pressure, heart attack, stroke, gastrointestinal irritation leading to ulceration and bleeding, renal injury, renal failure, and allergic reaction. Medical neccessity for custom orthotics: Patient is ambulatory and requires stabilization of the forefoot and rearfoot due to a flexible pes planovalgus deformity bilaterally with symptomatic left subfibular impingement. Patient will need the device for more than 6 months. Patient has the potential to benefit functionally and there is a need to control the forefoot and rearfoot in more than one plane. Treatment goals are to decrease strain on the deformed joints of the forefoot and rearfoot, to improve gait stability, and decrease pain and progression of deformity. This treatment is a viable alternative to reconstructive surgery. In this case prefabricated orthotics will not fit/secure to the patient due to their irregular contours and deformities. Custom orthotics must be fabricated to ensure proper fit and safety to the patient and to also reduce the risks of gapping, pressure spots, skin irritation, wounds, and injury. Peroneal tendonitis, left Patient examin ed and evaluated. Past medical history reviewed. He presents with new pain at the base of the left 5th metatarsal that has been ongoing for a couple of months. This seems to be associated with the left peroneal brevis tendon insertion. We discussed that he may have an insertional tendonitis due to overuse. I discussed options of treatment with physical therapy, immobilization, shockwave therapy, steroid injections, and PRP. Patient wished to proceed with a steroid injection. This was given into the left peroneal brevis insertion using aseptic technique. He tolerated this well. He was given post-steroid injection instructions. I advised icing over the next few days. He will follow back in the office once he is back from his trip. I encouraged him to call in the meantime with any questions or concerns. Pending Test Test Name Order Date INJECT TENDON ORIGIN/INSERT 11/06/2023 Next Appt Details Follow Up: 4 Weeks, Reason: Medications Administered Medication Instructions Date of Administration Dosage Notes dexAMETHasone Sod Phosphate PF 11/06/2023 2 mg Kenalog 11/06/2023 5 mg Progress Notes * Azael LIGHT ADOB:[birth year] (48 yo M)Acc No.[id number]:11/06/2023 Progress Notes Patient:?Azael LIGHT A Provider:?Karley Abrams DPM :1975???Age:48 Y???Sex:Male Sony e:11/06/2023 Address:[address] [place], [place] [id number] Pcp:Suellen Porter Subjective: * Chief Complaints: * ???Left foot pain and ankle pain * HPI: ???Constitutional:? Mr. Light presents for a follow up visit. He has been having pain to the outer aspect of the left foot around the 5th metatarsal. This started a couple months ago. It feels as a deep bruise. He only feels it with pressure on the foot. He denies any recent injuries or changes in activity. He also still gets some pain into the left sinus tarsi. He did try the ASO brace, but had minimal relief with this. He has not had any swelling or discoloration to the left foot. He did restart the meloxicam 15mg daily a few days ago and this has been helping some. He would like a refill on this. He does have an upcoming trip the end of the week to [place]. * ROS:?General/Constitutional:?Denies?Chills.?Denies?Fatigue.?Denies?Fever.?Denies?Headache.?Endocrine:?Denies?Cold intolerance.?Denies?Difficulty sleeping.?Denies?Excessive sweating.?Respiratory:?Denies?Cough.?Denies?Shortness of breath.?Denies?Wheezing.?Cardiovascular:?Denies?Chest pain at rest.?Denies?Chest pain with exertion.?Denies?Dizziness.?Musculoskeletal:?Patient complaining of?Left outer foot pain and left ankle pain.?Denies?Joint stiffness.?Denies?Leg cramps.?Skin:?Denies?Discoloration.?Denies?Masses.?Denies?Rash.?Neurologic:?Denies?Paralysis.?Denies?Tingling/Numbness.?Denies?Tremor.? * Medical History:? * Surgical History:?Varicose V [...] patient * Allergies:?N.K.D.A.no[Allerg ies Verified] Objective: * Vitals:?Wt:241.5lbs, Ht: 6ft 1in, BMI:31.86Index, HR:78/min, Temp:96.4F, RR:16/min, Ht-cm: 185.42, Wt-k.54 kg. * Examination: ???General Examination: ???This is [...] varicosities visualized to the lower leg bilaterally. No peripheral edema present. Capillary refill is less than 3 seconds to all digits bilaterally. Light touch sensation is symmetrical to all lower extremity dermatomes. Babinski is downgoing. Skin has normal turgor and texture. There are no open wounds, rashes, or lesions noted. There is significant tenderness at the left 5th metatarsal base without any edema or erythema. There is no tenderness to the peroneal tendons proximally on the left. There is some tenderness with resisted eversion on the left, but no weakness. There is pain with pressure into the left sinus tarsi. Pain with forced eversion of the subtalar joint. No subtalar joint restriction. No pain with left ankle joint range of motion. No discoloration or edema present. He does have a left pes planovalgus deformity with equinus. 5/5 strength for anterior, posterior, and lateral lower extremity muscle groups on the left and right. Assessment: * Assessment: 1.?Sinus tarsi syndrome, lef t - M25.572 (Primary)?2.?Peroneal tendonitis, left - M76.72?3.?Acquired pes planovalgus, left - M21.42? Plan: * Treatment: 2.?Peroneal tendonitis, left ?Procedure: INJECT TENDON ORIGIN/INSERT Notes: Patient examined and evaluated. Past medical history reviewed. He presents with new pain at the base of the left 5th metatarsal that has been ongoing for a couple of months. This seems to be associated with the left peroneal brevis tendon insertion. We discussed that he may have an insertional tendonitis due to overuse. I discussed options of treatment with physical therapy, immobilization, shockwave therapy, steroid injections, and PRP. Patient wished to proceed with a steroid injection. This was given into the left peroneal brevis insertion using aseptic technique. He tolerated this well. He was given post-steroid injection instructions. I advised icing over the next few days. He will follow back in the office once he is back from his trip. I encouraged him to call in the meantime with any questions or concerns. ?? * Procedures:?STEROID INJECTION LEFT PERONEAL BREVIS INSERTION: All risks and benefits of steroid injections were discussed in detail with the patient. Risks included infection, increased pain, steroid flare, thinning of soft tissue, ligaments, tendons, allergic reaction, and/or discoloration of skin at site of injection. Benefits included decrease of pain and inflammation. Patient expressed understanding and consent was signed. Patient advised to rest today after the injection. The patient should ice the area daily 20 minutes on and 20 minutes off for twice daily for the next three days. The patient can return to high impact activities next week. Patient was educated that it may take up to a week for the steroid to take full effect. The left foot was prepped and draped appropriately. The area was cleansed with an chlorahexadine solution. Ethyl chloride spray was then utilized to topically anesthetize the skin. 2cc steroid injection consisting of 1cc of 0.5% Marcaine Plain, 0.5cc Kenalog 10 and 0.5cc of 4mg/ml Dexamethasone were injected into peroneal brevis insertion site at the 5th metatarsal base. Pt tolerated the procedure well. Hemostasis was controlled with pressure and bandage applied. ? * Therapeutic Injections:? Dexamethasone : 2 mg given by KARLEY MARRERO D.P.M. (Peroneal tendonitis, left)??? Kenalog : 5 mg given by KARLEY MARRERO D.P.M. (Peroneal tendonitis, left) * Procedure Codes:?92304 INJEC T TENDON ORIGIN/INSERT, Modifiers: LT J1100 INJ DEXAMETHASONE SODIM PHOSHATE 1 [id number] INJ TRIAMCINOLONE ACETONIDE 10 MG * Follow Up:?4 Weeks * Billing Information: * Visit Code:? 19502 Office Visit, Est Pt., Level 3. Modifiers: 25 * Procedure Codes:? 07329 INJECT TENDON ORIGIN/INSERT. Modifiers: LT J1100 INJ DEXAMETHASONE SODIM PHOSHATE 1 MG. J3301 INJ TRIAMCINOLONE ACETONIDE 10 MG. * Sign off status: Completed true * Provider:?Karley Abrams DPM Date:?11/05 Generated for Niru valdez/Ari/eTransmitting on:?11/04/2024 08:47 AM EDT History and Physical [...] varicosities visualized to the lower leg bilaterally. No peripheral edema present. Capillary refill is less than 3 seconds to all digits bilaterally. Light touch sensation is symmetrical to all lower extremity dermatomes. Babinski is downgoing. Skin has normal turgor and texture. There are no open wounds, rashes, or lesions noted. There is significant tenderness at the left 5th metatarsal base without any edema or erythema. There is no tenderness to the peroneal tendons proximally on the left. There is some tenderness with resisted eversion on the left, but no weakness. There is pain with pressure into the left sinus tarsi. Pain with forced eversion of the subtalar joint. No subtalar joint restriction. No pain with left ankle joint range of motion. No discoloration or edema present. He does have a left pes planovalgus deformity with equinus. 5/5 strength for anterior, posterior, and lateral lower extremity muscle groups on the left and right.
--- OUTSIDE RECORDS SUMMARY | 2024-11-04 08:47 | XMS_ITS | Clinical Summary ---
Author Organization [address] [place] [address] [place] [phone] Phone Care Team Providers Care Relay Adjuster Name Role Phone Suellen Porter MD Primary Care Provider [phone] Allergies No known active allergies Medications lisinopriL (PRINIVIL,ZEST RIL) 10 mg tablet Take 10 mg by mouth daily. Active sildenafil citrate (VIAGRA ORAL) Take by mouth. A ctive sertraline (ZOLOFT) 50 mg tablet Take 50 mg by mouth daily. Active testosterone 20.25 mg/1.25 gram (1.62 %) gel in metered-dose pump Place onto the skin. Active meloxicam (MOBIC) 15 mg tablet Take 15 mg by mouth daily. Active UNABLE TO FIND Buprenorphine HCl-Naloxone HCl 8-2 MG FILM 63 Each 0 05/20/2024 06/17/2024 Sig - Route: Place 0.75 Film under the tongue 3 times daily for 28 days. - Sublingual Active buprenorphine- naloxone (SUBOXONE) 8-2 mg per SL filmIndication s:Drug dependence, in remission (CMS/HCC) Place 0.75 films under the tongue 3 (three) times a day. Max Daily Amount: 2.25 films 63 film 10/09/19 25 Active buprenorphine- naloxone (SUBOXONE) 8-2 mg per SL filmIndication s:Drug dependence, in remission (CMS/HCC) Place 0.75 films under the tongue 3 (three) times a day. Max Daily Amount: 2.25 films 68 film 09/09/19 25 025 Discontin ued(Reord er) Active Problems Problem Noted Date Diagnosed Date Drug dependence, in remission 04/19/2021 ED (erectile dysfunction) 03/30/2021 HTN (hypertension) 03/30/2021 Hypogonadism in male 03/30/2021 Nephrolithiasis 03/30/2021 Overview (05/21/2024): s/p kidney stone treatment x 2. RONNY (obstructive sleep apnea) 03/30/2021 Overview (05/21/2024): Home sleep test 07/11/2017 SMS Home Sleep Apnea Test: Date 07/11/2017; Wt 225#; BMI 30; SAMANTHA (AHI) 13, AI 2; HI 11; Unclassified apneas 0; Obstructive apneas 4; Central apneas 2; Mixed apneas 0; hypopneas 32; average oxygen saturation 95% (lowest 89% without saturations <88% for 5% or more of study) - Obstructive Sleep Apnea - mild; mostly hypopneas with a few obstructive and central apneas; without sleep related hypoventilation by 2020 home sleep apnea test. Sensorineural hearing loss 03/30/2021 Overview (05/21/2024): Left ear. Tinnitus 03/30/2021 Overview (05/21/2024): Left ear. Substance use disorder 03/01/2021 Overview (05/21/2024): On Suboxone. Encounters Date Type Department Care Team Description 10/09/2024 9:15 AM EST Office [facility] [address] [place] [address] Elias Shi MD Drug dependence, in remission (CMS/HCC) (Primary Dx) 09/09/2024 9:15 AM EST Office Visit Suboxone [facility] [address] [place] [phone] Elias Shi MD Drug dependence, in remission (CMS/HCC) (Primary Dx) 08/12/2024 9:15 AM EST Office Visit Suboxone [facility] [address] [place] [phone] Elias Shi MD Drug dependence, in remission (CMS/HCC) (Primary Dx) from Last 3 Months Medical History Medical History Date Comments Tobacco use 03/30/2021 DX:Tobacco use HTN (hypertension) 03/30/2021 DX:HTN (hyper tension) Hypogonadism in male 03/30/2021 DX:Hypogona dism in male ED (erectile dysfunction) 03/30/2021 DX:ED (erectile dysfunction) RONNY (obstructive sleep apnea) 03/30/2021 DX :RONNY (obstructive sleep apnea); COMMENT: Home sleep test 07/11/2017 Nephrolithiasis 03/30/2021 DX:Nephrolithias is; COMMENT: s/p kidney stone treatment x 2. Sensorineural hearing loss 03/30/2021 DX:Se nsorineural hearing loss; COMMENT: Left ear. Tinnitus 03/30/2021 DX:Tinnitus; COM MENT: Left ear. Family History Medical History Relation Name Comments Hypertension Father Arthritis Mother Relation Name Status Comments Father Mother Social History Tobacco Use Types Packs/Day Years Used Date Smoking Tobacco: Never Assessed Sex and Gender Information Value Date Recorded Sex Assigned at Not on file Legal Sex Male 5:27 PM EST Gender Identity Not on file Sexual Orientation Not on file Obstetrics History Last Filed Vital Signs Vital Sign Reading Time Taken Comments Blood Pressure 130/82 10/09/2024 9:24 AM EST Pulse 70 10/09/2024 9:24 AM EST Temperature 36.5 ??C (97.7 ??F) 10/09/2024 9:24 AM ES T Respiratory Rate - - Oxygen Saturation 96% 10/09/2024 9:24 AM EST Inhaled Oxygen Concentration - - Weight - - Height - - Body Mass Index - - Plan of Treatment Upcoming Encounters Date Type Department Care Team (Late st Contact Info) Description 11/06/2024 9:00 AM EDT Office [facility] [address] [place] [address] Elias Shi MD [address] [facility] [place] [address] Health Maintenance Due Date Last Done Comments DTaP,Tdap,and Td Vaccines (1 - Tdap) 02/15/1992 Hepatitis B Vaccines (1 of 3 - 19+ 3-dose series) 02/15/1992 Cholesterol Screening (Lipid Panel) 07/15/2022 Colorectal Cancer Screening: Colonoscopy 07/15/2022 Depression Screening 07/15/2022 HIV Screening 07/15/2022 Hepatitis C Screening 07/15/2022 Social Influencers of Health Screening 07/15/2022 Hypertension/CHF/CAD Annual BMP Blood Test 07/26/2022 Pneumococcal Vaccine: 50+ Ye ars (1 of 1 - PCV) 2023 Zoster Vaccines (1 of 2) 2023 COVID-19 Vaccine (1 - 2023-2 5 season) 2024 Influenza Vaccine (#1) 2024 HIB Vaccines Aged Out No longer eligi ble based on patient's age to complete this topic HPV Vaccines Aged Out No longer eligi ble based on patient's age to complete this topic Hepatitis A Vaccines Aged Out No long er eligible based on patient's age to complete this topic IPV Vaccines Aged Out No longer eligi ble based on patient's age to complete this topic MMR Vaccines Aged Out No longer eligi ble based on patient's age to complete this topic Meningococcal ACWY Vaccine Aged Out N o longer eligible based on patient's age to complete this topic Meningococcal B Vacine Aged Out No lo nger eligible based on patient's age to complete this topic Pneumococcal Vaccine: Pediat rics (0 to 5 Years) and At-Risk Patients (6 to 64 Years) Aged Out No longer eligible b ased on patient's age to complete this topic RSV Immunization Patients Un hardy 20 months Aged Out No longer eligible b ased on patient's age to complete this topic Varicella Vaccines Aged Out No longer eligible based on patient's age to complete this topic Procedures Procedure Name Priority Date/Time Associated Diagnosis Comments POC URINE DRUG SCREEN Routine 10/09/2024 9:50 AM EST Drug dependence, in remission (CMS/HCC) POC URINE DRUG SCREEN Routine 09/09/2024 9:37 AM EST Drug dependence, in remission (CMS/HCC) POC URINE DRUG SCREEN Routine 08/12/2024 10:20 AM EST Drug dependence, in remission (CMS/HCC) from Last 3 Months Results * (ABNORMAL) POC Urine Drug Screen (10/09/2024 9:50 AM EST) Only the most recent of3 resultswithin the time period is included. Amphetamine Screen, Ur POC Negative Negative Barbituates, [...] CARE TEST ENTER/EDIT OR DERABLES Final Result from Last 3 Months Insurance Care Teams Relay Adjuster Relationship Specialty Start Date End Date Suellen Porter MD [address] [place] [address] [address] [place] [address] PCP - General 12/03/23
--- OUTSIDE RECORDS SUMMARY | 2024-11-04 08:48 | XMS_ITS | Patient Health Record ---
Author Organization [facility] Address [address] [address] Care Team Providers Care Funeral Pre Need Consultant Name Role Phone MeaganSuellen Louise Primary Care Provider MIKE Alicea Unavailable [phone] Allergies No Known Allergies Reason For Referral No Information Medications Medication SIG (Take, Route, Frequency, Duration) Notes Start Date End Date Status Meloxicam 15 MG 1 tablet with food Orally Once a day for 30 day(s) Not-Taking Sertraline HCl 50 MG 1 tablet Orally Onc e a day Active Sildenafil Citrate A ctive Lisinopril 10 MG 1 tablet Orally Once a day Active Meloxicam 15 MG 1 tablet Orally Once a day with food. for 30 day(s) Not-Taking Meloxicam 15 MG 1 tablet with food Orally Once a day for 30 days 11/06/2023 Not-Taking Buprenorphine HCl 75 MCG 1 film to the g um Bucally Once a day Not-Taking Testosterone 20.25 MG/ACT (1.62%) 1 pump to skin in the morning to shoulder, upper arms or abdomen Transdermal Once a day Active Vital Signs Heart Rate 72 /min 02/06/2024 Temperature 97.6 degrees Fahrenheit 02/06/2024 Respiratory Rate 12 /min 02/06/2024 Height 6ft 1in in 02/06/2024 Weight 240.2 lbs 02/06/2024 BMI 31.69 kg/m2 02/06/2024 Procedures Procedure Date Ordered Date Performed Result Body Sit e INJECT TENDON ORIGIN/INSERT 11/06/2023 N/A DRAIN/INJECT, INTERMEDIATE JOINT/BURSA 02/06/2024 N/A Encounters Encounter Location Date Provider Diagnosis [facility] [address] [address] 11/06/2023 MIKE JANES Sinus tarsi syndrome, 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 The ASO brace was minimally helpful. He wished to have a steroid injection today. This was given in the office and he tolerated this well. I advised that the inserts would help control this pinching for him and that this is something he should really think about in the future. He will follow back with me as needed. 11/06/2023 Acquired pes planovalgus, left (ICD-10 - M21.42) Plan Of Treatment Pending Test Test Name Order Date X ray : Foot, left 3v 11/16/2021 X ray : Foot, left 3v 06/14/2023 INJ TENDON SHEATH/LIGAMENT/FASCIA 2021 INJ TENDON SHEATH/LIGAMENT/FASCIA 2021 INJECT TENDON ORIGIN/INSERT 11/06/2023 DRAIN/INJECT, INTERMEDIATE JOINT/BURSA 0 02/06/2024 AFO EDIN CHOPRA PREFAB [id number] 023 Insurance Providers Payer Name Payer Address Payer Phone Subscriber Number Group Number Insured Name Patient Relationship to Insured Coverage Start Date Coverage End Date [facility] [address] [place] [phone] [id number] Azael Mckeon Self - patient is the insured Medications Administered Medication Instructions Date of Administration Dosage Notes Dexamethasone 12/14/2021 2 mg Dexamethasone 01/11/2022 2 mg dexAMETHasone Sod Phosphate PF 11/06/2023 2 mg dexAMETHasone Sod Phosphate PF 02/06/2024 4 mg Kenalog 12/14/2021 20 mg Kenalog 01/11/2022 20 mg Kenalog 11/06/2023 5 mg Kenalog 02/06/2024 10 mg Medical (General) History Medical History History ICD Code Drug Dependence in remission Hypertension Hypogonadism in male Erectile Dysfunction Obstructive Sleep Apnea Sensorineural Hearing Loss (left ear) Tinnitus (left ear) Nephrolithiasis- calcium Chronic lumbar pain + COVID 202 not COVID vaccinated Varicosities lower extremities Surgical History Surgery Date(Month/Year) Varicose Vein Removal Kidney Stone Removal Hospitalization History Reason Date(Month/Year) Kidney Stone Surgery Varicose Vein Surgery
--- OUTSIDE RECORDS SUMMARY | 2024-11-04 08:48 | XMS_ITS ---
Author Organization [facility] Address [address] [address] Care Team Providers Care Plug Maker Name Role Phone Suellen Porter Primary Care Provider KARLEY Alicea Unavailable [phone] Allergies No Known Allergies REASON FOR VISIT left ankle pain Medications Medication SIG (Take, Route, [...] or abdomen Transdermal Once a day Active Meloxicam 15 MG 1 tablet with food Orally Once a day for 30 day(s) Not-Taking Lisinopril 10 MG 1 tablet Orally Once a day Active Meloxicam 15 MG 1 tablet Orally Once a day with food. 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 Plan Of Treatment Treatment Notes Assessment Notes Sinus tarsi syndrome, left Patient lily nues to have pain in the left sinus [...] will follow back with me as needed. Pending Test Test Name Order Date DRAIN/INJECT, INTERMEDIATE JOINT/BURSA 0 02/06/2024 Medications Administered Medication Instructions Date of Administration Dosage Notes dexAMETHasone Sod Phosphate PF 02/06/2024 4 mg Kenalog 02/06/2024 10 mg Progress Notes * Azael LIGHT ADOB:[birth year] (48 yo M)Acc No.[id number]:02/06/2024 Progress Note Patient:?Azael LIGHT A Provider:?Karley Abrams DPM :1975???Age:48 Y???Sex:Male Sony e:02/06/2024 Address:[address] [place], [place] [id number] Pcp:Suellen Porter Subjective: * Chief Complaints: * ???Left ankle pain * HPI: ???Constitutional:? Mr. Light presents for a follow up visit. He has been having pain around the outer aspect of the left ankle. He states this is the same area he was having discomfort at the last visit. He states the area around the 5th metatarsal that was bothering him has gone away. He states the injection worked within a day. He has not noticed any swelling or redness. He has been icing. He states the pain is only present when he is on the foot. It does not radiate. He has been using the mobic with some relief. * ROS:?General/Constitutional:?Denies?Chills.?Denies?Fatigue.?Denies?Fever.?Denies?Headache.?Respiratory:?Denies?Cough.?Denies?Shortness of breath.?Denies?Wheezing.?Musculoskeletal:?Patient complaining of?Left outer ankle pain.?Denies?Joint stiffness.?Denies?Leg cramps.?Skin:?Denies?Discoloration.?Denies?Masses.?Denies?Rash.?Neurologic:?Denies?Paralysis.?Denies?Tingling/Numbness.?Denies?Tremor.? * Medical History:? [...] or abdomen Transdermal Once a day Taking Lisinopril 10 MG Tablet 1 tablet Orally Once a day Taking Sildenafil Citrate Taking Sertraline HCl 50 MG Tablet 1 tablet Orally Once a day Taking Testosterone 20.25 MG/ACT (1.62%) Gel 1 pump to skin in the morning to shoulder, upper arms or abdomen Transdermal Once a day Not-TakingBuprenorphine HCl 75 MCG Film 1 film to the gum Bucally Once a day Meloxicam 15 MG Tablet 1 tablet with food Orally Once a day Meloxicam 15 MG Tablet 1 tablet Orally Once a day with food. Meloxicam 15 MG Tablet 1 tablet with food Orally Once a day Medication List reviewed and reconciled with the patientNot-Taking Buprenorphine HCl 75 MCG Film 1 film to the gum Bucally Once a day Not-Taking Meloxicam 15 MG Tablet 1 tablet with food Orally Once a day Not-Taking Meloxicam 15 MG Tablet 1 tablet Orally Once a day with food. Not-Taking Meloxicam 15 MG Tablet 1 tablet with food Orally Once a day Medication List reviewed and reconciled with the patient * Allergies:?N.K.D.A.no[Allerg ies Verified] Objective: * Vitals:?Wt:240.2lbs, Ht: 6ft 1in, BMI:31.69Index, HR:72/min, Temp:97.6F, RR:12/min, Ht-cm: 185.42, Wt-k.95 kg. * Examination: ???General Examination: ???This is [...] wounds, rashes, or lesions noted. There is no pain at the left 5th metatarsal base today. There is no tenderness to the peroneal [...] 1.?Sinus tarsi syndrome, lef t - M25.572 (Primary)? Plan: * Treatment: * Procedures:?STEROID INJECTION LEFT SINUS TARSI: All risks and benefits of steroid injections [...] then utilized to topically anesthetize the skin. 3cc steroid injection consisting of 1cc of 0.5% Marcaine Plain, 1cc Kenalog 10 and 1cc of 4mg/ml Dexamethasone were injected into the left sinus tarsi. Pt tolerated the procedure well. Hemostasis was controlled with pressure and bandage applied. ? * Therapeutic Injections:? Dexamethasone : 4 mg given by German LEESPTiffanie (Sinus tarsi syndrome, left)??? Kenalog : 10 mg given by German LEESPJimMJim (Sinus tarsi syndrome, left) * Procedure Codes:? DRAIN /INJECT, INTERMEDIATE JOINT/BURSA, Modifiers: LT J1100 INJ DEXAMETHASONE SODIM PHOSHATE 1 MG, Units: 4.00 J3301 INJ TRIAMCINOLONE ACETONIDE 10 MG * Billing Information: * Visit Code:? * Procedure Codes:? 22788 DRAIN/INJECT, INTERMEDIATE JOINT/BURSA. Modifiers: LT J1100 INJ DEXAMETHASONE SODIM PHOSHATE 1 MG. Units: 4.00. J3301 INJ TRIAMCINOLONE ACETONIDE 10 MG. * Sign off status: Completed true * Provider:?Karley Abrams DP Date:?02/05 Generated for Niru valdez/Ari/Rositaitting on:?11/04/2024 08:47 AM EDT History and Physical [...] wounds, rashes, or lesions noted. There is no pain at the left 5th metatarsal base today. There is no tenderness to the peroneal [...]
== END 2024-11-04 09:10 | disposition home or self-care (01) ==
LOC: HO.HMCFM 08:21
PROVIDERS: PCP Internal Medicine; Visit Provider Internal Medicine
DX: Z00.00 Encounter for general adult medical examination without abnormal findings (principal); F33.41 Major depressive disorder, recurrent, in partial remission; I10 Essential (primary) hypertension; R79.89 Other specified abnormal findings of blood chemistry

== ENCOUNTER → 2024-11-04 08:20 | Outpatient (BNVA) | payer OTHER, SELFPAY | PROVIDERS: Visit Provider Internal Medicine | DX: Z00.00 Encounter for general adult medical examination without abnormal findings (principal); F33.41 Major depressive disorder, recurrent, in partial remission; I10 Essential (primary) hypertension; F41.9 Anxiety disorder, unspecified; R79.89 Other specified abnormal findings of blood chemistry; Z79.899 Other long term (current) drug therapy | CPT/HCPCS: 96127 ==

== ENCOUNTER 2024-11-04 09:22 | Outpatient (REF) | payer OTHER, SELFPAY ==
[2024-11-04 11:22] LABS: MANUAL DIFF FLAG NO
[2024-11-04 11:29] LABS: Basophils Percent Auto 0.3 % (0-2); Eosinophils Absolute Auto 0.1 X10*3/uL (0.0-0.4); Eosinophils Percent Auto 1.5 % (0-4); Hematocrit 49.2 % (42.0-52.0); Imm Gran Abs Auto 0.04 X10*3/uL (0.00-0.03); Imm Gran Pct Auto 0.4 % (0.0-0.4); Lymphocytes Absolute Auto 1.5 X10*3/uL (1.2-4.9); Lymphocytes Percent Auto 15.4 % (20-40); Mean Corpuscular HGB Conc 34.6 g/dl (31.0-36.0); Mean Corpuscular Hemoglobin 29.3 pg (27.0-33.0); Mean Corpuscular Volume 84.8 fL (80.0-98.0); Mean Platelet Volume 10.5 fL (9.4-12.4); Monocytes Absolute Auto 0.6 X10*3/uL (0.1-1.2); Neutrophils Absolute Auto 7.3 x10*3/uL (2.0-8.3); Neutrophils Percent Auto 76.4 % (45-73); Platelet Count 189 X10*3/uL (160-400); Red Cell Distribution Width 12.7 % (11.0-16.0); White Blood Count 9.6 X10*3/uL (4.8-10.8)
[2024-11-04 12:29] LABS: Alanine Aminotransferase 23 U/L (0-40); Albumin Level 4.6 g/dL (3.5-5.0); Alkaline Phosphatase 59 U/L (39-117); Anion Gap 11 (12-20); Aspartate Amino Transferase 26 U/L (5-37); Bilirubin Total 0.9 mg/dL (0.0-1.0); Blood Urea Nitrogen 19 mg/dL (9-16); Calcium 9.9 mg/dL (8.4-10.2); Carbon Dioxide 29 mmol/L (22-29); Chloride 105 mmol/L (96-108); Cholesterol 159 mg/dL (<200); Estimated Glomerular Filt Rate > 60; Glucose Random 85 mg/dL (60-115); HDL Cholesterol 35 mg/dL (>40); LDL Cholesterol Calculated 95 mg/dL (<100); Potassium 4.2 mmol/L (3.3-5.1); Sodium 141 mmol/L (135-145); Total Protein 7.2 g/dL (6.5-8.0); Triglycerides 149 mg/dL (<150)
[2024-11-09 11:38] LABS: Testosterone, Free 22 pg/mL (35.0-155.0); Testosterone, Total 134 ng/dL (250-1100)
== END 2024-11-04 09:23 | disposition home or self-care (01) ==
LOC: HO.WFDLDS 09:22
PROVIDERS: Visit Provider Internal Medicine
DX: I10 Essential (primary) hypertension (principal); F33.41 Major depressive disorder, recurrent, in partial remission; R79.89 Other specified abnormal findings of blood chemistry; Z13.0 Encounter for screening for diseases of the blood and blood-forming organs and certain disorders involving the immune mechanism
CPT/HCPCS: 36415; 80053; 80061; 84402; 84403; 85025

== ENCOUNTER 2025-01-08 07:46 | Outpatient (AMB) | payer OTHER, SELFPAY ==
--- OUTSIDE RECORDS SUMMARY | 2025-01-08 07:49 | XMS_ITS | Clinical Summary ---
Author Organization [address] [place] [address] [place] [phone] Phone Care Team Providers Care Panel Machine Tender Name Role Phone Suellen Porter MD Primary Care Provider [phone] Allergies No known active allergies Medications lisinopriL [...] per SL filmIndication s:Drug dependence, in remission ([facility] V24, [facility] V28) Place 0.75 films under the tongue 3 (three) times a day. Max Daily Amount: 2.25 films 63 film 12/31/19 25 Active buprenorphine- naloxone (SUBOXONE) 8-2 mg per SL filmIndication s:Drug dependence, in remission ([facility] V24, [facility] V28) Place 0.75 films under the tongue 3 (three) times a day. Max Daily Amount: 2.25 films 63 film 12/03/19 25 025 Discontin ued(Reord er) Active Problems Problem Noted Date Diagnosed Date Drug dependence, in remission ([facility] V24, [facility]/ [facility] V28) 04/19/2021 ED (erectile dysfunction) 03/30/2021 HTN (hypertension) 03/30/2021 Hypogonadism in male 03/30/2021 Nephrolithiasis 03/30/2021 Overview (05/21/2024): s/p kidney stone treatment x 2. RONNY (obstructive sleep apnea) 03/30/2021 Overview (05/21/2024): Home sleep test 07/11/2017 [facility] Home Sleep Apnea Test: Date 07/11/2017; Wt [...] Encounters Date Type Department Care Team Description 12/30/2024 1:15 PM EDT Office Visit [facility] [address] [place], [place] [phone] Elias Shi MD Drug dependence, in remission ([facility] V24, [facility] V28) (Primary Dx) 12/02/2024 1:30 PM EDT Office Visit [facility] - [facility] [address] [place] [phone] Elias Shi MD Drug dependence, in remission ([facility] V24, [facility] V28) (Primary Dx) 11/06/2024 9:00 AM EDT Office Visit [facility] [address] [place] [phone] Elias Shi MD Drug dependence, in remission ([facility] V24, [facility] V28) (Primary Dx) from Last 3 Months Medical [...] Sign Reading Time Taken Comments Blood Pressure 128/86 12/30/2024 1:26 PM EDT Pulse 75 12/30/2024 1:26 PM EDT Temperature 36.7 ??C (98 ??F) 12/02/2024 1:33 PM EDT Respiratory Rate - - Oxygen Saturation 97% 12/30/2024 1:26 PM EDT Inhaled Oxygen Concentration - - Weight - - Height - - Body Mass Index - - Plan of Treatment Upcoming Encounters Date Type Department Care Team (Late st Contact Info) Description 01/27/2025 9:00 AM EDT [facility] [address] [facility] [place] [phone] Elias Shi MD [address], [place] Health Maintenance Due Date Last Done Comments DTaP,Tdap,and Td Vaccines (1 - Tdap) 02/15/1992 Hepatitis B Vaccines (1 of 3 - 19+ 3-dose series) 02/15/1992 Cholesterol Screening (Lipid Panel) 07/15/2022 Depression Screening 07/15/2022 HIV Screening 07/15/2022 Hepatitis C Screening 07/15/2022 Social Influencers of Health Screening 07/15/2022 Hypertension/CHF/CAD Annual BMP Blood Test 07/26/2022 Pneumococcal Vaccine: 50+ Years (1 of 1 - PCV) 2023 Zoster Vaccines (1 of 2) 2023 COVID-19 Vaccine (1 - 2023-2 5 season) 2024 Influenza Vaccine (Season Ended) 2025 Colorectal Cancer Screening: FIT-DNA (Cologuard) 10/24/2027 10/23/2024, 10/23/2024 HIB Vaccines Aged Out No longer eligi [...] age to complete this topic Meningococcal B Vaccine Aged Out No l onger eligible based on patient's age to complete this topic Pneumococcal Vaccine: Pediatrics (0 to 5 Years) and At-Risk Patients (6 to 64 Years) Aged Out No longer eligible b ased on patient's age to complete this topic RSV Immunization Patients Under 20 months Aged Out No longer eligible b ased on patient's age to complete this topic Varicella Vaccines Aged Out No longer eligible based on patient's age to complete this topic Procedures Procedure Name Priority Date/Time Associated Diagnosis Comments POC URINE DRUG SCREEN Routine 12/30/2024 1:41 PM EDT Drug dependence, in remission ([facility] V24, [facility] V28) POC URINE DRUG SCREEN Routine 12/02/2024 1:48 PM EDT Drug dependence, in remission ([facility] V24, [facility] V28) POC URINE DRUG SCREEN Routine 11/06/2024 9:14 AM EDT Drug dependence, in remission ([facility] V24, [facility] V28) from Last 3 Months Results * (ABNORMAL) POC Urine Drug Screen (12/30/2024 1:41 PM EDT) Only the most recent of3 resultswithin the time period is included. Pathologist [facility] Amphetamine Screen, Ur POC Negative Negative Barbituates, Ur POC Negative Negative Benzodiazepines, Ur POC Negative Negative Buprenorphine, Ur POC Positive(A) Negative Cocaine, Ur POC Negative Negative MDMA Ur POC Negative Negative Methamphetamine Screen, Ur POC Negative Negative Morphine Ur POC Negative Negative Methadone, Ur POC Negative Negative Opiate Scrn, Ur POC Negative Negative Oxycodone Scrn, Ur POC Negative Negative PCP, Ur POC Negative Negative THC, Ur POC Negative Negative Urine Urine specimen obtained by clean catch procedure / Unknown 12/30/2024 1:41 PM EDT Elias Shi MD POINT OF CARE TEST ENTER/EDIT OR DERABLES Final Result from Last 3 Months Insurance Care Teams Panel Machine Tender Relationship Specialty Start Date End Date Suellen Porter MD [address] [place] [address] [address] [place] [address] PCP - General 4/22/24
--- NOTE | 2025-01-08 08:11 | MHC.OFFVIS ---
Intake Visit Reasons: low testosterone Intake Note: pt here today for: Low Testosterone uro meds:testosterone allergies:none blood thinner:none Allergies No Known Allergies Allergy (Verified 01/08/25 20:24) Medication List - Last Reconciled 01/08/25 by HENNA Prather- buprenorphine-naloxone 8-2 mg film sublingual lisinopril 10 mg PO DAILY [semaglutide 1.375 .] sertraline 50 mg PO DAILY 90 days tadalafil (Cialis) 5 mg PO DAILY testosterone Apply 5 pumps daily or as directed OM upper arm or shoulder 1.65 MG HPI Comments Details: Azael is a 49-year-old male patient of Dr. Meagan Mathis. He has a past medical history of hypertension, depression, anxiety, ED, hypogonadism, and previous opioid dependence. He presents to the office today as a new patient for hypogonadism. In discussion with the patient today he reports a longstanding history of testosterone replacement with his PCP however most recently continues with low testosterone levels despite compliance with transdermal testosterone replacement. He reports a previous history of chronic opioid use from a longstanding history of nephrolithiasis and has since been on Suboxone and in remission. Recent labs were reviewed with the patient today as noted and trended below: Testosterone: 11/04 134 Free testosterone: 11/04 22 PSA: 11/04 2.0 Hemoglobin/hematocrit: 11/04 17/49.2 We discussed further treatment options of hypogonadism as well as potential causes of hypogonadism. These were discussed at length as well as risks and benefits of these interventions. He otherwise denies any bothersome urinary issues. He denies urinary urgency, urinary frequency, incontinence, nocturia, hematuria, dysuria, foul smelling urine, changes to urinary stream, flank pain, fever, and or chills. He is happy with his current voiding parameters. In office urinalysis results were reviewed with the patient today. He also reports recently starting a GLP 1 and has intentionally lost over 20 lb. He otherwise offers no other issues or concerns at this time. Patient was informed and verbally consented to the use of an ambient scribe for clinic note documentation during this visit. Discussion Notes I discussed with the patient the diagnosis of hypogonadism secondary to chronic opioid use and the inadequacy of his current testosterone gel regimen. We reviewed the benefits of transitioning to a subcutaneous injection, Zyosted, which offers convenience and potentially improved efficacy. I explained the prior authorization process and potential outcomes; I highlighted the need for regular monitoring of testosterone, PSA, and CBC levels to prevent complications such as increased hematocrit or prostate-related issues. The patient understood and consented to the proposed plan, acknowledging the importance of adherence and communication with our office regarding any issues with medication access or symptom changes. 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 [employer] Current occupational exposures/hazards: Yes (loud noises) Cognitive needs: No Hearing needs: Yes (hearing aid left ear) Vision needs: No Review of Systems Const All systems reviewed & are unremarkable except as noted in HPI and below Physical Exam Const General: cooperative, healthy appearing, comfortable, no acute distress, well developed, alert and awake Orientation/consciousness: patient oriented x3 Limitations: no limitations HEENT Head: Yes normal to inspection, Yes normocephalic and Yes atraumatic Ears: hearing grossly normal bilaterally Eyes General: appearance normal, both eyes and all related structures Neck Neck: Yes normal visual inspection and Yes trachea midline Chest Chest palpation & inspection: normal inspection of the chest Resp Effort & Inspection: normal respiratory effort and able to speak in complete sentences Cardio Rate: regular rate GI Inspection: Yes normal to inspection General: Yes no CVA tenderness Back/Spine/Pelvis Back: no CVA tenderness Skin General skin exam: no rashes or lesions noted Neuro General: patient oriented x3 Extrem General: Yes normal to inspection Psych Appearance: grossly normal and well kempt Mental Status: mental status grossly normal Speech and movement: Normal speech and movement present and Clear speech present Affect: normal affect Attitude: cooperative Thought process: Normal thought process present Thought content: Normal thought content present Insight: Fair insight present (Psych) Judgement: Fair judgement present (Psych) Results AMB Urinalysis, Automated UA Leukoctes 0 Lu/uL Last Edit by Muriel María on 01/08/25 08:23 UA Nitrite Negative Last Edit by Muriel María on 01/08/25 08:23 UA Urobilinogen 1 mg/dL Last Edit by Muriel María on 01/08/25 08:23 UA Protein 15 mg/dL Last Edit by Muriel María on 01/08/25 08:23 UA pH 7.0 Last Edit by Muriel María on 01/08/25 08:23 UA Blood 10 Sb/uL Last Edit by Muriel María on 01/08/25 08:23 UA Specific [place] 1.015 Last Edit by Muriel María on 01/08/25 08:23 UA Ketone Negative Last Edit by Muriel María on 01/08/25 08:23 UA Bilirubin 0 mg/dL Last Edit by Muriel María on 01/08/25 08:23 UA Glucose 0 mg/dL Last Edit by Muriel María on 01/08/25 08:23 Results Reviewed Results Reviewed: Laboratory Last Values Urine pH (Auto) 7.0 01/08/25 08:21 Specific [place] (Auto) 1.015 01/08/25 08:21 Urine Protein (Auto) 15 mg/dL 01/08/25 08:21 Glucose (UA)(Auto) 0 mg/dL 01/08/25 08:21 Urine Ketones (Auto) Negative 01/08/25 08:21 Urine Blood (Auto) 10 Sb/uL 01/08/25 08:21 Urine Nitrite (Auto) Negative 01/08/25 08:21 Urine Bilirubin (Auto) 0 mg/dL 01/08/25 08:21 Urine Urobilinogen (Auto) 1 mg/dL 01/08/25 08:21 Leukocyte Esterase (Auto) 0 Lu/uL 01/08/25 08:21 Assessment & Plan Assessment & Plan (1) Low testosterone: Code(s): R79.89 - Other specified abnormal findings of blood chemistry Category: Medical (2) Hypogonadism in male: Code(s): E29.1 - Testicular hypofunction Category: Medical Plan In office urinalysis results reviewed with the patient today; as noted above. We discussed potential causes of hypogonadism as well as further treatment options and risks and benefits of these treatment options. Stop testosterone gel Start Zyosted as discussed and prescribed. Will obtain CBC, PSA, and testosterone free and total in 3 months. He currently denies any bothersome urinary issues or concerns. He reports be happy with current voiding parameters. We discussed lifestyle modifications to assist with hypogonadism as well as overall health and well-being. Follow-up in 3 months with labs to be completed prior; or sooner with any issues, concerns, and or questions. Orders: Orders AMB Urinalysis Automated Today R79.89 - Other specified abnormal findings of blood chemistry Testosterone, Free/Total 3 Months E29.1 - Testicular hypofunction Complete Blood Count no Diff 3 Months E29.1 - Testicular hypofunction Prostate Specific Antigen 3 Months E29.1 - Testicular hypofunction Medications: New testosterone enanthate (Xyosted) 50 mg (0.5 mL) subcut QWEEK 30 days 2.5 mL 3RF Patient Instructions: The patient had an opportunity to ask questions regarding the treatment plan. All questions were answered. Physical exam, labs, and imaging were discussed and reviewed in detail. As well as risks, benefits, and discussion of treatment choices. No major barriers to understanding were identified. The patient expressed understanding and agreement with the above treatment plan. The patient was made aware they should contact our office by phone for worsening of their current condition, the appearance of new symptoms, or with any questions or concerns. Compliance is encouraged with any medications and follow up testing that is ordered. It is a privilege to be allowed the opportunity to participate in? your urological care.? Again, if you have any questions or concerns If you have any questions or concerns please do not hesitate to contact me. The office is [phone]. This note is constructed using voice recognition software. While every effort has been made to ensure accuracy cryptographer errors may have been included. Yours sincerely, ANASTACIO Prather Coding Level of Care Code New Pt Level 4 (86816) Diagnoses Low testosterone R79.89 Hypogonadism in male E29.1
== END 2025-01-08 08:43 | disposition home or self-care (01) ==
LOC: HO.HUSH 07:47
PROVIDERS: PCP Internal Medicine; Visit Provider Nurse Practitioner Family
DX: R79.89 Other specified abnormal findings of blood chemistry (principal); E29.1 Testicular hypofunction
CPT/HCPCS: 99204

== ENCOUNTER → 2025-01-08 07:46 | Outpatient (BNVA) | payer OTHER, SELFPAY | PROVIDERS: PCP Internal Medicine; Visit Provider Nurse Practitioner Family | DX: E29.1 Testicular hypofunction (principal); N20.0 Calculus of kidney; R79.89 Other specified abnormal findings of blood chemistry; Z79.891 Long term (current) use of opiate analgesic | CPT/HCPCS: 81003 ==

== ENCOUNTER 2025-02-23 12:10 | Outpatient (REF) | payer OTHER, SELFPAY ==
--- OUTSIDE RECORDS SUMMARY | 2025-02-23 13:11 | XMS_ITS | Clinical Summary ---
Author Organization [address] [place] [address] [place] [phone] Phone Care Team Providers Care Pan Greaser Name Role Phone Suellen Porter MD Primary Care Provider Allergies No known active allergies Medications lisinopriL [...] per SL filmIndication s:Drug dependence, in remission ([facility] V24, [facility] V28) Place 0.75 films under the tongue 3 (three) times a day. Max Daily Amount: 2.25 films 63 film 01/28/20 25 Active buprenorphine- naloxone (SUBOXONE) 8-2 mg per SL filmIndication s:Drug dependence, in remission ([facility] V24, [facility] V28) Place 0.75 films under the tongue 3 (three) times a day. Max Daily Amount: 2.25 films 63 film 12/31/19 25 025 Discontin ued(Reord er) Active Problems Problem Noted Date Diagnosed Date Drug dependence, in remission ([facility] V24, [facility]/ [facility] V28) 04/19/2021 ED (erectile dysfunction) 03/30/2021 HTN (hypertension) 03/30/2021 Hypogonadism in male 03/30/2021 Nephrolithiasis 03/30/2021 Overview (05/21/2024): s/p kidney stone treatment x 2. RONNY (obstructive sleep apnea) 03/30/2021 Overview (05/21/2024): Home sleep test 07/11/2017 [facility] Home Sleep Apnea Test: Date 07/11/2017; Wt [...] Encounters Date Type Department Care Team Description 01/27/2025 9:00 AM EDT Office Visit Sub[facility]one [facility] [address] [place], [place] [phone] Elias Shi MD Drug dependence, in remission ([facility] V24, [facility] V28) (Primary Dx) 12/30/2024 1:15 PM EDT Office Visit Suboxone - [facility] [address] [place] [phone] Elias Shi MD Drug dependence, in remission ([facility] V24, [facility] V28) (Primary Dx) 12/02/2024 1:30 PM EDT Office Visit Suboxone - [facility] [address] [place] [phone] Elias Shi MD Drug dependence, in remission ([facility] V24, [facility] V28) (Primary Dx) from Last 3 Months [...] Sign Reading Time Taken Comments Blood Pressure 110/76 01/27/2025 9:07 AM EDT Pulse 66 01/27/2025 9:07 AM EDT Temperature 36.6 C (97.9 F) 01/27/2025 9:07 AM EDT Respiratory Rate - - Oxygen Saturation 99% 01/27/2025 9:07 AM EDT Inhaled Oxygen Concentration - - Weight - - Height - - Body Mass Index - - Plan of Treatment Upcoming Encounters Date Type Department Care Team (Late st Contact Info) Description 02/24/2025 9:00 AM EDT Office [facility] [address] [facility] [address] [facility] [place] [phone] Elias Shi MD [address] [place], [place] Health Maintenance Due Date Last Done [...] 2023-2 5 season) 2024 Influenza Vaccine (#1) 2025 Colorectal Cancer Screening: FIT-DNA (Cologuard) 10/24/2027 [...] Diagnosis Comments POC URINE DRUG SCREEN Routine 01/27/2025 9:38 AM EDT Drug dependence, in remission (CMS/HCC V24, [facility] V28) POC URINE DRUG SCREEN Routine 12/30/2024 1:41 PM EDT Drug dependence, in remission (CMS/HCC V24, CMS/HCC V28) POC URINE DRUG SCREEN Routine 12/02/2024 1:48 PM EDT Drug dependence, in remission ([facility] V24, [facility] V28) from Last 3 Months Results * (ABNORMAL) POC Urine Drug Screen (01/27/2025 9:38 AM EDT) Only the most recent of3 resultswithin the time period is included. Amphetamine Screen, Ur POC Negative Negative Barbituates, Ur POC Negative Negative Benzodiazepines, Ur POC Negative Negative Buprenorphine, Ur POC Positive(A) Negative Cocaine, Ur POC Negative Negative MDMA Ur POC Negative Negative Methamphetamine Screen, Ur POC Negative Negative Methadone, Ur POC Negative Negative Opiate Scrn, Ur POC Negative Negative Oxycodone Scrn, Ur POC Negative Negative PCP, Ur POC Negative Negative THC, Ur POC Negative Negative Temperature, Ur POC 98 Urine Urine specimen obtained by clean catch procedure / Unknown 01/27/2025 9:38 AM EDT Elias Shi MD POINT OF CARE TEST ENTER/EDIT OR DERABLES Final Result from Last 3 Months Insurance Care Teams Pan Greaser Relationship Specialty Start Date End Date Suellen Porter MD [address] [place] [address] [address] [place] [address] PCP - General 12/03/23
--- OUTSIDE RECORDS SUMMARY | 2025-02-23 13:11 | XMS_ITS | Patient Health Record ---
Author Organization [facility] Address [address] [facility] [address] [place] [address] Care Team Providers Care Manager Asset Name Role Phone Suellen Porter Primary Care Provider MIKE Alicea Unavailable [phone] Allergies No Known Allergies Reason For Referral [...] or abdomen Transdermal Once a day Active Plan Of Treatment Pending Test Test Name [...] Insured Coverage Start Date Coverage End Date [facility] [address] [facility] [address] [place] [phone] [id number] Mike Azael Self - patient is the insured Medications [...] Nephrolithiasis- calcium Chronic lumbar pain + COVID 2021 not COVID vaccinated Varicosities lower extremities Surgical History Surgery Date(Month/Year) Varicose Vein Removal Kidney Stone Removal Hospitalization History Reason Date(Month/Year) Kidney Stone Surgery Varicose Vein Surgery
[2025-02-23 13:15] LABS: Hematocrit 43.8 % (42.0-52.0); Hemoglobin 15.3 g/dl (14.0-18.0); Mean Corpuscular HGB Conc 34.9 g/dl (31.0-36.0); Mean Corpuscular Hemoglobin 29.0 pg (27.0-33.0); Mean Corpuscular Volume 83.1 fL (80.0-98.0); NRBC Abs Auto 0.000 X10*3/uL (0.0-0.012); NRBC Pct Auto 0.0 /100WBC (0.0-0.2); Platelet Count 191 X10*3/uL (160-400); Red Blood Count 5.27 X10*6/uL (4.60-5.80); White Blood Count 9.6 X10*3/uL (4.8-10.8)
[2025-02-23 13:53] LABS: Prostate Specific Antigen 2.23 ng/mL (<0.05-4.0)
[2025-02-27 19:18] LABS: Testosterone, Free 101.3 pg/mL (35.0-155.0)
== END 2025-02-23 12:11 | disposition home or self-care (01) ==
LOC: HO.10HDL 12:10
PROVIDERS: Visit Provider Urology
DX: E29.1 Testicular hypofunction (principal); R79.89 Other specified abnormal findings of blood chemistry
CPT/HCPCS: 11980; 36415; 84153; 84402; 84403; 85027; J2003; J3490

== ENCOUNTER 2025-02-23 12:44 | Outpatient (AMB) | payer OTHER, SELFPAY ==
--- NOTE | 2025-02-23 13:06 | MHC.OFFVIS ---
Intake Visit Reasons: testopel Intake Note: Patient is present for TESTOPEL Urology Medication:TESTOSTERONE TESTOPEL,TESTOSTERONE ENANTHATE,TADALAFIL Antibiotic Allergy:NONE Blood Thinner:NONE Entertainment Centre Manager Required: No Allergies No Known Allergies Allergy (Verified 02/23/25 13:09) HPI Comments Details: Azael is a pleasant male. He is a patient of Dr. Mathis. He seen for the following urologic conditions - hypogonadism Testosterone pellets today Repeat lab work in 2 weeks and 10 weeks Repeat pellets in 12 weeks Testosterone: 11/04 134 Free testosterone: 11/04 22 PSA: 11/04 2.0 Hemoglobin/hematocrit: 11/04 17/49.2 Hypogonadism associated with Suboxone Has been on GLP 1 with further muscle loss Depressive symptoms PFSH Medical History Kidney stone Family History Mother Diabetes Heart disease Dementia Father HTN (hypertension) FH: kidney cancer Skin cancer Dementia Other FH: mental illness Social History Housing: House Alcohol intake: current Patient Tobacco Use Status: Current everyday Tobacco user Cigarette Packs Per Day: 1 Years Smoked: 30 e-Cigarette/Vaping Use: Never Used Second Hand Smoke Exposure: No service: No Current occupational status: employed 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 Current occupational exposures/hazards: Yes (loud noises) Cognitive needs: No Hearing needs: Yes (hearing aid left ear) Vision needs: No Review of Systems Const Denies chills and Denies fever(s) Card Reports no additional complaints and Denies syncope Resp Denies cough GI Denies abdominal pain and Denies heartburn Reports as per HPI and Denies change in libido Neuro Denies syncope Psych Denies change in libido Endo Denies change in libido Physical Exam Const General: cooperative, healthy appearing, comfortable and no acute distress Orientation/consciousness: patient oriented x3 HEENT Face and sinus: Yes normal facial exam Mouth: moist mucous membranes Neck Neck: Yes normal visual inspection, Yes full ROM and Yes trachea midline Chest Chest palpation & inspection: normal inspection of the chest Resp Effort & Inspection: normal respiratory effort, able to speak in complete sentences and no respiratory distress GI Inspection: Yes normal to inspection Back/Spine/Pelvis Cervical Spine: normal cervical lordosis Thoracic/Lumbar Spine: thoracic and lumbar spine normal to inspection Skin General skin exam: no rashes or lesions noted Neuro General: patient oriented x3, gait normal, tone normal and moves all extremities Extrem General: Yes normal to inspection and Yes capillary refill normal Office Procedures AMB Testopel Details: Testopel Placement Pre Op Diagnosis - Low testosterone Post Op Diagnosis - Low Testosterone Procedure: Testopel Insertion Testopel was prepared for insertion. Six Testopel pellets were removed from the individual glass containers and placed in a sterile container. The patient was placed in left lateral position with left side down and right side up. The area over the right hip was cleaned with Betadine. A fenestrated drape was placed over the area. Lidocaine 2% was injected first as a skin wheal and then into the subcutaneous tissue directed in a fashion down towards the femur in the subcutaneous space to perform hydrodissection. The purpose of the injection is to numb the length of the trocar track. A 15 Blade scapel was used to make a puncture incision into the subcutaneous space. Trocar with sharp-ended stylet inserted through stab incision at a 45? angle and into the subcutaneous fat layer. The needle was flatten out and advanced leaving the pellet loading area exposed. 6 pellets were inserted using Adson forceps into the loading trocar in a V pattern. The blunt stylet was used to advance pellets into the tract while withdrawing the trocar - 4 pellets and 2 pellets placed in each arm of the V. Once completed the area was wiped with alchohol. The trocar insertion site was closed with multiple steristrips and a 2x2 gauze placed with a tegaderm dressing placed. CPT 28838 J3490 Subcutaneous Hormone Pellet Insertion: 40982 Subq Hormone Pellet Insertion Office Meds Testopel 75 mg implant pellet Performing Provider: Jose Juan Ching MD Performing Location: [facility] [place] [facility] Administered by: Julieta Bello RN on 02/23/25 13:08 Dose Route Admin Location Dispensed Lot Number Expiration Date NDC Therapeutic Riding Instructor 75 mg implant 6 ea Total Dispensed Waste 6 ea 0 % lidocaine HCl 20 mg/mL (2 %) injection solution Performing Provider: Jose Juan Ching MD Performing Location: [facility] [place] [facility] Administered by: Julieta Bello RN on 02/23/25 13:08 Dose Route Admin Location Dispensed Lot Number Expiration Date NDC Therapeutic Riding Instructor 10 mL subcut 10 mL Total Dispensed Waste 10 mL 0 % Assessment & Plan Assessment & Plan (1) Hypogonadism in male: Code(s): E29.1 - Testicular hypofunction Category: Medical Plan Lab work 2 weeks and 10 weeks Twelve week repeat pellet Orders: Orders AMB Testosterone Pellet Implant Today E29.1 - Testicular hypofunction, R79.89 - Other specified abnormal findings of blood chemistry Testosterone, Total 10 Weeks E29.1 - Testicular hypofunction Complete Blood Count no Diff Today E29.1 - Testicular hypofunction Prostate Specific Antigen Today E29.1 - Testicular hypofunction Testosterone, Free/Total Today E29.1 - Testicular hypofunction Testosterone, Total 2 Months E29.1 - Testicular hypofunction Medications: New testosterone (Testopel) 6 pellets subcut every 12 weeks 75 mg subcut ONCE 6 ea 5RF 12 weeks Patient Instructions: This note is constructed using voice recognition software. While every effort has been made to ensure accuracy lvn lpn errors may have been included. Imaging studies, laboratory and physical exam results were discussed and reviewed in detail. No major barriers to patient understanding were identified. An opportunity to ask questions regarding the treatment plan was provided. All questions were answered. The patient expressed understanding and agreement with the above treatment plan. The patient is aware they should contact our office by phone for worsening of their current condition or the appearance of new urologic symptoms. Compliance is encouraged with any medications and followup testing that is ordered. It is a privilege to participate in the urologic care of your patient. If you have any questions or concerns regarding treatment for the above conditions, or other urologic issues, please do not hesitate to contact me. The office telephone contact is [phone]. Sincerely, Dr Jose Juan Ching MD, [facility] - Urology Compassionate Specialist Care for the Genitourinary System Coding Level of Care Code Est Pt Level 3 (51615) Diagnoses Hypogonadism in male E29.1
== END 2025-02-23 13:51 | disposition home or self-care (01) ==
LOC: HO.HUSH 12:45
PROVIDERS: PCP Internal Medicine; Visit Provider Urology
DX: R79.89 Other specified abnormal findings of blood chemistry (principal); E29.1 Testicular hypofunction
CPT/HCPCS: 11980

== ENCOUNTER 2025-03-11 11:22 | Outpatient (REF) | payer OTHER, SELFPAY ==
--- OUTSIDE RECORDS SUMMARY | 2025-03-11 12:25 | XMS_ITS | Clinical Summary ---
Author Organization [address] [place] [address] [place] [phone] Phone Care Team Providers Care Consumer Safety Inspector Name Role Phone Suellen Porter MD Primary [...] buprenorphine- naloxone (SUBOXONE) 8-2 mg [address] film [address] 0.75 films under the tongue 3 (three) times a day. Max Daily Amount: 2.25 films 63 film 02/25/20 25 Active buprenorphine- naloxone (SUBOXONE) 8-2 mg per SL filmIndication s:Drug dependence, in remission (CMS/HCC V24, CMS/HCC V28) Place 0.75 films under the tongue 3 (three) times a day. Max Daily Amount: 2.25 films 63 film 01/28/20 25 025 Discontin ued(Reord er) Active Problems Problem Noted Date Diagnosed Date Drug dependence, in remission (CMS/HCC V24, CMS/ HCC V28) 04/19/2021 ED (erectile dysfunction) 03/30/2021 HTN (hypertension) 03/30/2021 Hypogonadism in male 03/30/2021 Nephrolithiasis 03/30/2021 Overview (05/21/2024): s/p kidney stone treatment x 2. RONNY (obstructive sleep apnea) 03/30/2021 Overview (05/21/2024): Home sleep test 07/11/2017 [facility] Home Sleep Apnea Test: Date 07/11/2017; [...] Encounters Date Type Department Care Team Description 02/24/2025 9:00 AM EDT Office Visit [facility] [address] [place] [phone] Elias Shi MD Drug dependence, in remission ([facility] V24, [facility] V28) (Primary Dx) 01/27/2025 9:00 AM EDT Office Visit Suboxone - [facility] [address] [place] [phone] Elias Shi MD Drug dependence, in remission ([facility] V24, [facility] V28) (Primary Dx) 12/30/2024 1:15 PM EDT Office Visit Sub[facility] - [facility] [address] [place] [phone] Elias Shi MD Drug dependence, in remission ([facility] V24, [facility] V28) (Primary Dx) from Last 3 Months [...] Sign Reading Time Taken Comments Blood Pressure 96/62 02/24/2025 8:58 AM EDT Pulse 65 02/24/2025 8:58 AM EDT Temperature 36.5 C (97.7 F) 02/24/2025 8:58 AM EDT Respiratory Rate - - Oxygen Saturation 98% 02/24/2025 8:58 AM EDT Inhaled Oxygen Concentration - - Weight - - Height - - Body Mass Index - - Plan of Treatment Upcoming Encounters Date Type Department Care Team (Late st Contact Info) Description 03/24/2025 9:15 AM EDT Office Visit Sub[facility]one - [facility] [address] [place], [place] [phone] Elias Shi MD [address] [place] [address] Health Maintenance Due Date Last Done Comments DTaP,Tdap,and Td Vaccines (1 - Tdap) 02/15/1992 Hepatitis B Vaccines (1 of 3 - 19+ 3-dose series) 02/15/1992 Cholesterol Screening (Lipid Panel) 07/15/2022 HIV Screening 07/15/2022 Hepatitis C Screening 07/15/2022 Social Influencers of Health Screening 07/15/2022 Hypertension/CHF/CAD Annual BMP Blood Test 07/26/2022 Pneumococcal Vaccine: 50+ Years (1 of 1 - PCV) 2023 Zoster Vaccines (1 of 2) 2023 COVID-19 Vaccine (1 - 2023-2 5 season) 2024 Depression Screening 08/13/2024 Influenza Vaccine (#1) 2025 Colorectal Cancer Screening: [...] Diagnosis Comments POC URINE DRUG SCREEN Routine 02/24/2025 9:13 AM EDT Drug dependence, in remission (CMS/HCC V24, CMS/HCC V28) POC URINE DRUG SCREEN Routine 01/27/2025 9:38 AM EDT Drug dependence, in remission (CMS/HCC V24, CMS/HCC V28) POC URINE DRUG SCREEN Routine 12/30/2024 1:41 PM EDT Drug dependence, in remission (CMS/HCC V24, CMS/HCC V28) from Last 3 Months Results * (ABNORMAL) POC Urine Drug Screen (02/24/2025 9:13 AM EDT) Only the most recent of3 [...] obtained by clean catch procedure / Unknown 02/24/2025 9:13 AM EDT Elias Shi MD POINT OF CARE TEST ENTER/EDIT OR DERABLES Final Result from Last 3 Months Insurance [address] [place] [address] Care Teams Consumer Safety Inspector Relationship Specialty Start Date End Date Suellen Porter MD [address] [place] [address] [address] [place] [address] PCP - General 12/03/23
--- OUTSIDE RECORDS SUMMARY | 2025-03-11 12:25 | XMS_ITS ---
Author Name [place] Organization Unknown Care Team Organization Name Specialty Phone Email Start Date End Da te [facility] EULALIA ARRIETA [facility] [email or web address] 11/14/2022 4 [facility] Termed, PROVIDER Primary Care 06/20/202203/13 4
--- OUTSIDE RECORDS SUMMARY | 2025-03-11 12:25 | XMS_ITS | Patient Health Record ---
Author Organization [facility] Address [address] [facility] [address] [place] [address] Care Team Providers Care Assembly Line Worker Name Role Phone Suellen Porter Primary Care Provider MIKE Alicea Unavailable [phone] Allergies No Known Allergies Reason For Referral No Information Medications Medication SIG (Take, Route, Frequency, Duration) Notes Start Date End Date Status Meloxicam 15 MG 1 tablet with food Orally Once a day; Duration: 30 day(s) Not-Taking Sertraline HCl 50 MG 1 tablet Orally Onc e a day Active Sildenafil Citrate A ctive Lisinopril 10 MG 1 tablet Orally Once a day Active Meloxicam 15 MG 1 tablet Orally Once a day with food.; Duration: 30 day(s) Not-Taking Meloxicam 15 MG 1 tablet with food Orally Once a day; Duration: 30 days 11/06/2023 Not-Taking Buprenorphine HCl 75 [...] Insured Coverage Start Date Coverage End Date [facility] [address] [place] [address] [id number] Azael Mckeon Self - patient is the [...]
== END 2025-03-11 11:23 | disposition home or self-care (01) ==
LOC: HO.10HDL 11:22
PROVIDERS: Visit Provider Urology
DX: E29.1 Testicular hypofunction (principal)
CPT/HCPCS: 36415; 84403

== ENCOUNTER 2025-05-07 10:25 | Outpatient (REF) | payer OTHER, SELFPAY | END 2025-05-07 10:26 | disposition home or self-care (01) | LOC: HO.10HDL 10:25 | PROVIDERS: Visit Provider Urology | DX: E29.1 Testicular hypofunction (principal) | CPT/HCPCS: 36415; 84403 ==

== ENCOUNTER 2025-05-11 09:17 | Outpatient (AMB) | payer OTHER, SELFPAY ==
--- NOTE | 2025-05-11 09:32 | MHC.PC.OV ---
Vital Signs 05/11/25 09:34 Height 5 ft 11.26 in Weight 213 lb BMI 29.5 BP 126/74 Blood Pressure Location Lt brachial Position Sitting Respiration 12 Pulse 70 Pulse Source Pulse Oximeter Pulse Oximetry (%) 98 Oxygen Delivery Method Room Air Intake Visit Reasons: blood pressure 6m fu Intake Note: Follow up Checkroom Attendant Required: No Allergies No Known Allergies Allergy (Verified 05/11/25 09:32) Tobacco use date assessed: 05/11/25 Dental Screening Dental Screen Date: 04/21/24 HPI HPI Comments History of Present Illness Details The patient is a 50 year old male with a past medical history of htn, depression, anxiety, ED, low testosterone presenting for follow up CV: On lisinopril 10mg daily. well controlled. denies chest pain, shortness of breath. On compound ozempic through [employer] with successful weight loss. Insurance wont cover any GLP BH: On sertraline 50mg daily. stable. Tried wellbutrin in past but didnt like side effects. Endo/uro: on tadafanil 5mg daily, continues testosterone replacement therapy. follow [facility] Colon cancer screening: cologeduar 10/2024 ROS CONSTITUTIONAL: Denies weight loss, fever and chills. HEENT: Denies changes in vision and hearing. RESPIRATORY: Denies SOB and cough. CV: Denies palpitations and CP GI: Denies abdominal pain, nausea, vomiting and diarrhea. : Denies dysuria and urinary frequency. MSK: Denies new myalgia and joint pain. SKIN: Denies rash and pruritus. NEUROLOGICAL: Denies headache PSYCHIATRIC: Denies recent changes in mood. PHYSICAL EXAM: GENERAL: Alert and oriented x 3. NAD EYES: EOMI. Anicteric. HENT: Moist mucous membranes. No scleral icterus. No cervical lymphadenopathy. LUNGS: Clear to auscultation bilaterally. CARDIOVASCULAR: Regular rate and rhythm. No murmur. No JVD. ABDOMEN: Soft, non-tender +bs EXTREMITIES: No edema. Non-tender. SKIN: No rashes or lesions. Warm. NEUROLOGIC: No focal neurological deficits. CN II-XII grossly intact PSYCHIATRIC: Cooperative. 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 [employer] Current occupational exposures/hazards: Yes (loud noises) Cognitive needs: No Hearing needs: Yes (hearing aid left ear) Vision needs: No Questionnaire Thrive Questionnaire Date Thrive assessed: 10/29/24 I am a: Patient What is your living situation today?: I have a steady place to live Within the past 12 months, did the food you bought not last and you didn't have the money to get more?: Never true Within the past 12 months, did you worry whether your food would run out before you got money to buy more?: Never true Do you have trouble paying for medicines?: No Do you have trouble getting transportation to medical appointments?: No Do you have trouble paying your heating and electricity bill?: No Do you have trouble taking care of your child, family member or friend?: Yes Do you have trouble with day-to-day activities such as bathing, preparing meals, shopping, managing finances, etc.?: No Are you currently unemployed and looking for a job?: No Are you interested in more education?: No Please select the resources that you would like help with: None Currently or been in a relationship where the following occur: No concerns reported THRIVE Score: 0 AUDIT C Alcohol Use Questionnaire (AUDIT-C) 1. How often do you have a drink containing alcohol?: Never 3. How often do you have six or more drinks on one occasion?: Never Total Score: 0 RAFAELA-7 AMB Questionnaire RAFAELA-7 Date RAFAELA - 7 assessed: 11/04/24 Source: Developed by Drs. Lul Graves, Yary Andrews, Thom Arevalo and colleagues, with an educational jayson from [employer]. Physical exam (Primary Care) Vital Signs: Last Vital Signs Pulse 70 05/11/25 09:34 Resp 12 05/11/25 09:34 BP 126/74 05/11/25 09:34 Pulse Ox 98 05/11/25 09:34 Oxygen Delivery Method Room Air 05/11/25 09:34 BMI result Body Mass Index 29.5 Tobacco/Smoking Status: Tobacco use Status Tobacco use date assessed 05/11/25 05/11/25 09:36 Patient Tobacco Use Status Current everyday Tobacco 05/11/25 09:36 e-Cigarette/Vaping Use Never Used 05/11/25 09:36 Thrive Assessment: Date of Thrive Assessment Date Thrive assessed 10/29/24 05/11/25 09:36 Currently or been in a relationship where the following occur: No concerns reported Coding Level of Care Code Est Pt Level 4 (26094) Diagnoses Major depressive disorder, recurrent, in partial remission F33.41 Primary hypertension I10 Hypertension type: primary hypertension Low testosterone R79.89 Assessment & Plan Assessment & Plan (1) Major depressive disorder, recurrent, in partial remission: Code(s): F33.41 - Major depressive disorder, recurrent, in partial remission Category: Medical (2) Hypertension: Code(s): I10 - Essential (primary) hypertension Category: Medical Qualifiers: Hypertension type: primary hypertension Qualified Code(s): I10 - Essential (primary) hypertension (3) Low testosterone: Code(s): R79.89 - Other specified abnormal findings of blood chemistry Category: Medical Plan HTN is well controlled on current medications. Congratulated on continued weight loss Hypogonadism-continues testosterone replacement through urology BH-stable on zoloft Orders: Orders Complete Blood Count Auto Diff 5 Months F33.41 - Major depressive disorder, recurrent, in partial remission, I10 - Essential (primary) hypertension, R79.89 - Other specified abnormal findings of blood chemistry Lipid Panel 5 Months F33.41 - Major depressive disorder, recurrent, in partial remission, I10 - Essential (primary) hypertension, R79.89 - Other specified abnormal findings of blood chemistry Hemoglobin A1c 5 Months F33.41 - Major depressive disorder, recurrent, in partial remission, I10 - Essential (primary) hypertension, R79.89 - Other specified abnormal findings of blood chemistry Comprehensive Met. Panel 5 Months F33.41 - Major depressive disorder, recurrent, in partial remission, I10 - Essential (primary) hypertension, R79.89 - Other specified abnormal findings of blood chemistry TSH reflex Free T4 5 Months F33.41 - Major depressive disorder, recurrent, in partial remission, I10 - Essential (primary) hypertension, R79.89 - Other specified abnormal findings of blood chemistry Medications: New amoxicillin-pot clavulanate 875-125 mg 1 tab PO BID 20 tabs 0RF
[2025-05-11 09:34] VITALS: BP 126/74; PULSE 70; RESP 12; O2SAT 98; BMI 29.5
--- OUTSIDE RECORDS SUMMARY | 2025-05-11 10:02 | XMS_ITS | Patient Health Record ---
Author Organization [facility] Address [address] [facility] [address] [place] [address] Care Team Providers Care Disbursement Clerk Name Role Phone Suellen Porter Primary Care Provider MIKE Alicea Unavailable [phone] Allergies No Known Allergies Reason For Referral [...] Insured Coverage Start Date Coverage End Date [facility] [address] [place] [address] [id number] Azael Mckeon Self - patient is the [...]
--- OUTSIDE RECORDS SUMMARY | 2025-05-11 10:02 | XMS_ITS | Clinical Summary ---
Author Organization [address] [place] [address] [place] [phone] Phone Care Team Providers Care Orthopedic Rn Name Role Phone Suellen Porter MD Primary Care Provider [phone] Allergies No known active allergies Medications lisinopriL [...] Max Daily Amount: 2.25 films 63 film 04/21/20 25 Active buprenorphine- naloxone (SUBOXONE) 8-[address] 0.75 films under the tongue 3 (three) times a day. Max Daily Amount: 2.25 films 63 film 03/24/20 25 025 Discontin ued(Reord er) Active Problems Problem Noted Date Diagnosed Date Drug dependence, in remission (CMS/HCC V24, CMS/ HCC V28) 04/19/2021 ED (erectile dysfunction) 03/30/2021 HTN (hypertension) 03/30/2021 Hypogonadism in male 03/30/2021 Nephrolithiasis 03/30/2021 Overview (05/21/2024): s/p kidney stone treatment x 2. RONNY (obstructive sleep apnea) 03/30/2021 Overview (05/21/2024): Home sleep test 07/11/2017 [facility] Home Sleep Apnea Test: Date [...] Encounters Date Type Department Care Team Description 04/21/2025 9:15 AM EDT Office Visit Suboxone - [facility] [address] [place], [place] [phone] Elias Shi MD Drug dependence, in remission ([facility] V24, [facility] V28) (Primary Dx) 03/24/2025 9:15 AM EDT Office Visit Suboxone - [facility] [address] [place], [place] [phone] Elias Shi MD Drug dependence, in remission ([facility] V24, [facility] V28) (Primary Dx) 02/24/2025 9:00 AM EDT Office Visit Suboxone - [facility] [address] [place] [address] Elias Shi MD Drug dependence, in remission ([facility] V24, [facility]/HCC V28) (Primary Dx) from Last 3 Months [...] Sign Reading Time Taken Comments Blood Pressure 144/82 04/21/2025 9:13 AM EDT Pulse 62 04/21/2025 9:13 AM EDT Temperature 36.7 C (98 F) 04/21/2025 9:13 AM EDT Respiratory Rate - - Oxygen Saturation 100% 04/21/2025 9:13 AM EDT Inhaled Oxygen Concentration - - Weight - - Height - - Body Mass Index - - Plan of Treatment Upcoming Encounters Date Type Department Care Team (Late st Contact Info) Description 05/19/2025 9:00 AM EDT Office Visit Walk-In Clinic - [address] [phone] Elias Shi MD [address] [place] [address] Health Maintenance Due Date Last Done Comments [...] 2023 Zoster Vaccines (1 of 2) 2023 Depression Screening 08/13/2024 COVID-19 Vaccine (1 - 2023-2 5 season) 2025 Influenza Vaccine (#1) 2025 Colorectal Cancer Screening: FIT-DNA (Cologuard) 10/24/2027 10/23/2024, 10/23/2024 RSV Immunization Adult Patients (1 - 1-dose 75+ series) 02/15/2048 HIB Vaccines Aged Out No longer eligi [...] Diagnosis Comments POC URINE DRUG SCREEN Routine 04/21/2025 9:14 AM EDT Drug dependence, in remission (CMS/HCC V24, CMS/HCC V28) POC URINE DRUG SCREEN Routine 03/24/2025 9:32 AM EDT Drug dependence, in remission (CMS/HCC V24, CMS/HCC V28) POC URINE DRUG SCREEN Routine 02/24/2025 9:13 AM EDT Drug dependence, in remission (CMS/HCC V24, CMS/HCC V28) from Last 3 Months Results * (ABNORMAL) POC Urine Drug Screen (04/21/2025 9:14 AM EDT) Only the most recent of3 [...] obtained by clean catch procedure / Unknown 04/21/2025 9:14 AM EDT Elias Shi MD POINT OF CARE TEST ENTER/EDIT OR DERABLES Final Result from Last 3 Months Insurance [address] [place] [address] Care Teams Orthopedic Rn Relationship Specialty Start Date End Date Suellen Porter MD [address] [place] [address] [address] [place] [address] PCP - General 12/03/23
== END 2025-05-11 09:50 | disposition home or self-care (01) ==
LOC: HO.HMCFM 09:17
PROVIDERS: PCP Internal Medicine; Visit Provider Internal Medicine
DX: F33.41 Major depressive disorder, recurrent, in partial remission (principal); I10 Essential (primary) hypertension; R79.89 Other specified abnormal findings of blood chemistry

== ENCOUNTER 2025-05-20 10:51 | Outpatient (AMB) | payer OTHER, SELFPAY ==
--- NOTE | 2025-05-20 11:10 | A.OFFVIS_ITS ---
Intake Visit Reasons: Testopel insertion/labs Intake Note: Patient is present for TESTOPEL INJ Urology Medication:TESTOSTERONE TESTOPEL, TADALAFIL Antibiotic Allergy:NONE Blood Thinner:NONE Labs done 05/07/25 : Total Testosterone : 358 Web Publisher Required: No Accompanied by: Self / Same As Patient Allergies No Known Allergies Allergy (Verified 05/20/25 11:10) HPI Comments Details: Azael is a pleasant male. He is a patient of Dr. Mathis. He seen for the following urologic conditions - hypogonadism Good biochemical response to initial pellet insertion Does feel some improvement in well-being Second cycle placed Check lab work a 10 week Testosterone pellets today Repeat lab work in 2 weeks and 10 weeks Repeat pellets in 12 weeks Cycle 1 03/06 580 05/07 358 Testosterone: 11/04 134 Free testosterone: 11/04 22 PSA: 11/04 2.0 Hemoglobin/hematocrit: 11/04 17/49.2 Hypogonadism associated with Suboxone Has been on GLP 1 with further muscle loss Depressive symptoms PFSH Medical History Kidney stone Family History Mother Diabetes Heart disease Dementia Father HTN (hypertension) FH: kidney cancer Skin cancer Dementia Other FH: mental illness Social History Housing: House Alcohol intake: current Patient Tobacco Use Status: Current everyday Tobacco user Cigarette Packs Per Day: 1 Years Smoked: 30 e-Cigarette/Vaping Use: Never Used Second Hand Smoke Exposure: No service: No Current occupational status: employed 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 Current occupational exposures/hazards: Yes (loud noises) Cognitive needs: No Hearing needs: Yes (hearing aid left ear) Vision needs: No Review of Systems Const Denies chills and Denies fever(s) Card Reports no additional complaints and Denies syncope Resp Denies cough GI Denies abdominal pain and Denies heartburn Reports as per HPI and Denies change in libido Neuro Denies syncope Psych Denies change in libido Endo Denies change in libido Physical Exam Const General: cooperative, healthy appearing, comfortable and no acute distress Orientation/consciousness: patient oriented x3 HEENT Face and sinus: Yes normal facial exam Mouth: moist mucous membranes Neck Neck: Yes normal visual inspection, Yes full ROM and Yes trachea midline Chest Chest palpation & inspection: normal inspection of the chest Resp Effort & Inspection: normal respiratory effort, able to speak in complete sentences and no respiratory distress GI Inspection: Yes normal to inspection Back/Spine/Pelvis Cervical Spine: normal cervical lordosis Thoracic/Lumbar Spine: thoracic and lumbar spine normal to inspection Skin General skin exam: no rashes or lesions noted Neuro General: patient oriented x3, gait normal, tone normal and moves all extremities Extrem General: Yes normal to inspection and Yes capillary refill normal Office Meds Testopel 75 mg implant pellet Performing Provider: Jose Juan Ching MD Performing Location: [facility] Administered by: Jose Juan Ching MD on 05/20/25 13:15 Dose Route Admin Location Dispensed Lot Number Expiration Date [facility] Backside Grinder 75 mg implant 6 ea Total Dispensed Waste 6 ea 0 % lidocaine HCl 20 mg/mL (2 %) injection solution Performing Provider: Jose Juan Ching MD Performing Location: [facility] Administered by: Jose Juan Ching MD on 05/20/25 13:15 Dose Route Admin Location Dispensed Lot Number Expiration Date NDC Backside Grinder 10 mL subcut 10 mL Total Dispensed Waste 10 mL 0 % Assessment & Plan Assessment & Plan (1) Hypogonadism in male: Code(s): E29.1 - Testicular hypofunction Category: Medical Plan 12 week follow-up testosterone pellet Orders: Orders Testosterone, Total 10 Weeks E29.1 - Testicular hypofunction AMB Testosterone Pellet Implant Today E29.1 - Testicular hypofunction Patient Instructions: This note is constructed using voice recognition software. While every effort has been made to ensure accuracy edge dyer errors may have been included. Imaging studies, laboratory and physical exam results were discussed and reviewed in detail. No major barriers to patient understanding were identified. An opportunity to ask questions regarding the treatment plan was provided. All questions were answered. The patient expressed understanding and agreement with the above treatment plan. The patient is aware they should contact our office by phone for worsening of their current condition or the appearance of new urologic symptoms. Compliance is encouraged with any medications and followup testing that is ordered. It is a privilege to participate in the urologic care of your patient. If you have any questions or concerns regarding treatment for the above conditions, or other urologic issues, please do not hesitate to contact me. The office telephone contact is [phone]. Sincerely, Dr Jose Juan Ching MD, [facility] - Urology Compassionate Specialist Care for the Genitourinary System Coding Level of Care Code Est Pt Level 3 (19400) Diagnoses Hypogonadism in male E29.1
== END 2025-05-20 11:58 | disposition home or self-care (01) ==
LOC: HO.HUSH 10:52
PROVIDERS: PCP Internal Medicine; Visit Provider Urology
DX: E29.1 Testicular hypofunction (principal)
CPT/HCPCS: 11980; 99213

== ENCOUNTER → 2025-05-20 10:51 | Outpatient (BNVA) | payer OTHER, SELFPAY | PROVIDERS: PCP Internal Medicine; Visit Provider Urology | DX: E29.1 Testicular hypofunction (principal) | CPT/HCPCS: 11980; J2003; J3490 ==

== ENCOUNTER 2025-07-23 12:22 | Outpatient (REF) | payer OTHER, SELFPAY ==
--- OUTSIDE RECORDS SUMMARY | 2025-07-23 18:41 | XMS_ITS | Clinical Summary ---
Author Organization [address] [place] [address] [place] [phone] Phone Care Team Providers Care Method Consultant Name Role Phone Suellen Porter MD Primary Care Provider [phone] Allergies No known active allergies Medications lisinopriL [...] a day. Max Daily Amount: 2.25 films 67 film 07/14/20 25 Active buprenorphine- naloxone (SUBOXONE) 8-2 [address] 0.75 films under the tongue 3 (three) times a day. Max Daily Amount: 2.25 films 67 film 06/16/20 25 025 Discontin ued(Reord er) Active Problems [...] Encounters Date Type Department Care Team Description 07/14/2025 9:00 AM EST Office Visit [facility] [address] [place], [place] [phone] Elias Shi MD Drug dependence, in remission ([facility] V24, [facility] V28) (Primary Dx) 06/16/2025 9:00 AM EST Office Visit [facility] [address] [place], [place] [phone] Elias Shi MD Drug dependence, in remission ([facility] V24, [facility] V28) (Primary Dx) 05/12/2025 3:15 PM EDT Office Visit [facility] [address] [place], [place] [phone] Elias Shi MD Drug dependence, in remission ([facility] V24, [facility] V28) (Primary Dx) from Last 3 [...] on file Sexual Orientation Not on file Last Filed Vital Signs Vital Sign Reading Time Taken Comments Blood Pressure 126/76 07/14/2025 9:08 AM EST Pulse 69 07/14/2025 9:08 AM EST Temperature 36.6 C (97.9 F) 07/14/2025 9:08 AM EST Respiratory Rate 16 06/16/2025 9:16 AM EST Oxygen Saturation 98% 07/14/2025 9:08 AM EST Inhaled Oxygen Concentration - - Weight - - Height - - Body Mass Index - - Plan of Treatment Upcoming Encounters Date Type Department Care Team (Late st Contact Info) Description 08/11/2025 9:00 AM EST Office Visit Walk-In Clinic - [facility] [address], [place] [phone] Elias Shi MD [address], [place] Health Maintenance Due Date Last Done [...] Depression Screening 08/13/2024 COVID-19 Vaccine (1 - 2024-2 6 season) 2025 Influenza Vaccine (#1) 2025 Colorectal [...] Diagnosis Comments POC URINE DRUG SCREEN Routine 07/14/2025 9:23 AM EST Drug dependence, in remission (CMS/HCC V24, CMS/HCC V28) POC URINE DRUG SCREEN Routine 06/16/2025 9:14 AM EST Drug dependence, in remission (CMS/HCC V24, CMS/HCC V28) POC URINE DRUG SCREEN Routine 05/12/2025 3:31 PM EDT Drug dependence, in remission (CMS/HCC V24, CMS/[facility] V28) from Last 3 Months Results * (ABNORMAL) POC Urine Drug Screen (07/14/2025 9:23 AM EST) Only the most recent of3 [...] Ur POC Negative Negative Temperature, Ur POC 94 Urine Urine specimen obtained by clean catch procedure / Unknown 07/14/2025 9:23 AM EST Elias Shi MD POINT OF CARE TEST ENTER/EDIT OR DERABLES Final Result from Last 3 Months Insurance Care Teams Method Consultant Relationship Specialty Start Date End Date Suellen Porter MD [address] [place] [address] [address] [place] [address] PCP - General 12/03/23
== END 2025-07-23 12:23 ==
LOC: HO.LAB 12:22
PROVIDERS: Visit Provider Urology
DX: E29.1 Testicular hypofunction (principal)
CPT/HCPCS: 36415; 84403